=== PATIENT | male | born 1985 | race Caucasian/White ===

== ENCOUNTER 2017-10-06 09:05 | Emergency (ER) | payer OTHER ==
[~2017-10-06] VITALS: Ht 180.3 cm; Wt 86.2 kg
--- OUTSIDE RECORDS SUMMARY | 2017-10-06 09:12 | XMS REPORT | Continuity of Care Document ---
Author Author [facility] Address Unknown Phone Unavailable Allergies There is no data. Medications There is no data. Problems There is no data. Procedures There is no data. Results There is no data. Encounters ACCT No. Visit Date/Time Discharge Status Pt. Type Provider Facility Loc./Unit Complaint [id number] 05/15/2017 08:52:59 ACT Unknown
[2017-10-06] MEDS ORDERED: ACETAMINOPHEN 500 MG TAB (TYLENOL) PO ONE (09:45)
[2017-10-06 09:53] LABS: BASOPHILS % (AUTO) 1 % (0-10); EOSINOPHILS % (AUTO) 0 % (0-10); HEMATOCRIT 43 % (40-54); LYMPHOCYTES # (AUTO) 1.8 X 10^3 (1.0-4.0); LYMPHOCYTES % (AUTO) 27 % (12-44); MEAN CORPUSCULAR HEMOGLOBIN 35 PG (25-34); MEAN CORPUSCULAR HGB CONC 37 G/DL (32-36); MEAN CORPUSCULAR VOLUME 95 FL (80-99); MEAN PLATELET VOLUME 11.2 FL (7.4-10.4); MONOCYTES # (AUTO) 0.7 X 10^3 (0.0-1.0); MONOCYTES % (AUTO) 11 % (0-12); NEUTROPHILS % (AUTO) 61 % (42-75); PLATELET COUNT 91 10^3/uL (130-400); RED BLOOD COUNT 4.55 10^6/uL (4.35-5.85); RED CELL DISTRIBUTION WIDTH 13.5 % (10.0-14.5); WHITE BLOOD COUNT 6.6 10^3/uL (4.3-11.0)
--- NOTE | 2017-10-06 09:59 | ED Cough/URI ---
General Chief Complaint: Cough/Cold/Flu Symptoms Stated Complaint: BODY ACHES,FEVER Nursing Triage Note: ARRIVED VIA AMB TO ROOM 05. COMPLAINS OF FLU LIKE SX FOR 11 DAYS. STATES IT GOT BETTER BUT HAS BECAME WORSE AGIAN. STARTED AMOXICILLIN X4 DAYS AGO BUT NOT BETTER. RAN A TEMP THRU THE NOC AND TOOK APPX X6 IBUPROFEN THRU THE NOC. Source: patient Exam Limitations: no limitations History of Present Illness Date Seen by Provider: Oct 06, 2017 Time Seen by Provider: 09:55 Initial Comments This 32-year-old white male presents with a complaint of cough congestion and myalgias fever and general malaise as been intermittently present for the last 10 days. The patient denies associated headache, stiff neck, photophobia, shortness of breath, nausea, vomiting, or diarrhea. Allergies and Home Medications Allergies Coded Allergies: No Known Drug Allergies (Unverified , 10/06/17) Patient Home Medication List Home Medication List Reviewed: Yes Constitutional: No chills, fever, malaise EENTM: No ear pain Respiratory: see HPI, cough, No short of breath Cardiovascular: No chest pain Gastrointestinal: No abdominal pain, No nausea, No vomiting Genitourinary: No dysuria, No frequency Musculoskeletal: No back pain Skin: No change in color, No rash Psychiatric/Neurological: No Symptoms Reported Hematologic/Lymphatic: No Symptoms Reported Immunological/Allergic: no symptoms reported Past Yhuoryz-Dbmhbd-Qsokoo Hx Patient Social History Recent Foreign Travel: No Contact w/Someone Who Travel: No Recent Infectious Disease Expo: No Recent Hopitalizations: No Surgeries History of Surgeries: Yes (HERNIA) Respiratory History of Respiratory Disorde: No Cardiovascular History of Cardiac Disorders: No Neurological History of Neurological Disord: No Genitourinary History of Genitourinary Disor: No Gastrointestinal History of Gastrointestinal Di: No Musculoskeletal History of Musculoskeletal Dis: No Endocrine History of Endocrine Disorders: No HEENT History of HEENT Disorders: No Cancer History of Cancer: No Psychosocial History of Psychiatric Problem: No Reviewed Nursing Assessment Reviewed/Agree w Nursing PMH: Yes Physical Exam Vital Signs Vital Signs - First Documented 10/06/17 09:11 Temp 101.5 Pulse 113 B/P (MAP) 140/99 (113) Capillary Refill : Less Than 3 Seconds General Appearance: WD/WN, no apparent distress HEENT: normal ENT inspection Neck: non-tender, full range of motion, supple Respiratory: chest non-tender, lungs clear Cardiovascular: regular rate, rhythm Gastrointestinal: normal bowel sounds, non tender, soft Extremities: normal range of motion, non-tender, normal inspection Skin: normal color, warm/dry Focused Exam Evaluation Lactate Level Laboratory Tests 10/06/17 09:36: Lactic Acid Level 1.21 Lactic Acid Level Laboratory Tests Test 10/06/17 09:36 Lactic Acid Level 1.21 MMOL/L (0.50-2.00) Progress/Results/Core Measures Suspected Sepsis Recent Fever Within 48 Hours: Yes Infection Criteria Present: Suspected New Infection New/Unexplained Altered Menta: No Sepsis Screen: Possible Sepsis Risk Sepsis Diagnosis: SIRS Temperature:101.5 Pulse: 113 Respiratory Rate: Laboratory Tests 10/06/17 09:36: White Blood Count 6.6 Blood Pressure 140 /99 Mean: 113 Laboratory Tests 10/06/17 09:36: Lactic Acid Level 1.21 Laboratory Tests 10/06/17 09:36: Creatinine 0.79, INR Comment 1.1, Platelet Count 91L, Total Bilirubin 0.7 Results/Orders Lab Results Laboratory Tests Test 10/06/17 09:36 10/06/17 09:49 Range/Units White Blood Count 6.6 4.3-11.0 10^3/uL Red Blood Count 4.55 4.35-5.85 10^6/uL Hemoglobin 16.0 13.3-17.7 G/DL Hematocrit 43 40-54 % Mean Corpuscular Volume 95 80-99 FL Mean Corpuscular Hemoglobin 35 H 25-34 PG Mean Corpuscular Hemoglobin Concent 37 H 32-36 G/DL Red Cell Distribution Width 13.5 10.0-14.5 % Platelet Count 91 L 130-400 10^3/uL Mean Platelet Volume 11.2 H 7.4-10.4 FL Neutrophils (%) (Auto) 61 42-75 % Lymphocytes (%) (Auto) 27 12-44 % Monocytes (%) (Auto) 11 0-12 % Eosinophils (%) (Auto) 0 0-10 % Basophils (%) (Auto) 1 0-10 % Neutrophils # (Auto) 4.0 1.8-7.8 X 10^3 Lymphocytes # (Auto) 1.8 1.0-4.0 X 10^3 Monocytes # (Auto) 0.7 0.0-1.0 X 10^3 Eosinophils # (Auto) 0.0 0.0-0.3 10^3/uL Basophils # (Auto) 0.0 0.0-0.1 10^3/uL Prothrombin Time 14.7 12.2-14.7 SEC INR Comment 1.1 0.8-1.4 Activated Partial Thromboplast Time 33 24-35 SEC Sodium Level 128 L 135-145 MMOL/L Potassium Level 3.1 L 3.6-5.0 MMOL/L Chloride Level 90 L 98-107 MMOL/L Carbon Dioxide Level 25 21-32 MMOL/L Anion Gap 13 5-14 MMOL/L Blood Urea Nitrogen 4 L 7-18 MG/DL Creatinine 0.79 0.60-1.30 MG/DL Estimat Glomerular Filtration Rate > 60 BUN/Creatinine Ratio 5 Glucose Level 124 H 70-105 MG/DL Lactic Acid Level 1.21 0.50-2.00 MMOL/L Calcium Level 7.9 L 8.5-10.1 MG/DL Total Bilirubin 0.7 0.1-1.0 MG/DL Aspartate Amino Transf (AST/SGOT) 116 H 5-34 U/L Alanine Aminotransferase (ALT/SGPT) 64 H 0-55 U/L Alkaline Phosphatase 109 40-136 U/L Total Protein 6.9 6.4-8.2 GM/DL Albumin 3.6 3.2-4.5 GM/DL Urine Color LAMBERTO H Urine Clarity CLEAR Urine pH 8 5-9 Urine Specific [place] 1.010 L 1.016-1.022 Urine Protein 2+ H NEGATIVE Urine Glucose (UA) NEGATIVE NEGATIVE Urine Ketones NEGATIVE NEGATIVE Urine Nitrite NEGATIVE NEGATIVE Urine Bilirubin NEGATIVE NEGATIVE Urine Urobilinogen 4 H NORMAL MG/DL Urine Leukocyte Esterase 1+ H NEGATIVE Urine RBC (Auto) NEGATIVE NEGATIVE Urine RBC NONE /HPF Urine WBC RARE /HPF Urine Squamous Epithelial Cells NONE /HPF Urine Crystals NONE /LPF Urine Bacteria NEGATIVE /HPF Urine Casts NONE /LPF Urine Mucus NEGATIVE /LPF Urine Culture Indicated NO Micro Results Microbiology 10/06/17 Influenza Types A,B Antigen (VÍCTOR) - Final, Complete My Orders Orders - NAHEED DOYLE MD Cbc With Automated Diff (10/06/17 09:30) Comprehensive Metabolic Panel (10/06/17 09:30) Lactic Acid Analyzer (10/06/17 09:30) Blood Culture (10/06/17 09:30) Sputum Culture (10/06/17 09:30) Ua Culture If Indicated (10/06/17:30) Protime With Inr (10/06/17:30) Partial Thromboplastin Time (10/06/17 09:30) Chest 1 View, Ap/Pa Only (10/06/17 09:30) Saline Lock/Iv-Start (10/06/17 09:30) Saline Lock/Iv-Start (10/06/17 09:30) Vital Signs Adult Sepsis Patie Q1H (10/06/17 09:30) Remove Rings In Anticipation O (10/06/17:30) Saline Lock/Iv-Start (10/06/17 09:30) Acetaminophen Tablet (Tylenol Tablet) (10/06/17 09:45) Influenza A And B Antigens (10/06/17 09:52) Medications Given in ED Current Medications Medications Dose Ordered Sig/Ojse Route Start Time Stop Time Status Last Admin Dose Admin Acetaminophen 1,000 mg ONCE ONCE PO 10/06/17 09:45 10/06/17 09:46 DC 10/06/17 09:51 1,000 MG Vital Signs/I&O Vital Sign - Last 12Hours 10/06/17 10/06/17 09:11 11:12 Temp 101.5 100.0 Pulse 113 B/P (MAP) 140/99 (113) Capillary Refill : Less Than 3 Seconds Blood Pressure Mean: 113 Progress Note : Time: 11:28 Progress Note The patient's chest x-ray demonstrated a patchy right-sided infiltrate. The patient's laboratory evaluation was unremarkable. Departure Impression Impression: Primary Impression: Pneumonia Qualified Codes: J18.9 - Pneumonia, unspecified organism Disposition: HOME, SELF-CARE Condition: Unchanged Departure-Patient Inst. Decision time for Depature: 11:30 Referrals: [facility] (PCP/Family) Primary Care Physician Patient Instructions: Pneumonia, Adult (DC) Add. Discharge Instructions: Zithromax as prescribed. Close follow-up with [facility] on Monday. Return in the interim if any problems or questions. All discharge instructions reviewed with patient and/or family. Voiced understanding. NAHEED DOYLE MD Oct 06, 2017 09:58
[2017-10-06 10:02] LABS: INR 1.1 (0.8-1.4); PROTHROMBIN TIME PATIENT 14.7 SEC (12.2-14.7)
[2017-10-06 10:12] LABS: ALANINE AMINOTRANSFERASE 64 U/L (0-55); ALBUMIN 3.6 GM/DL (3.2-4.5); ALKALINE PHOSPHATASE 109 U/L (40-136); BILIRUBIN,TOTAL 0.7 MG/DL (0.1-1.0); BUN/CREATININE RATIO 5; CALCIUM 7.9 MG/DL (8.5-10.1); CARBON DIOXIDE 25 MMOL/L (21-32); CHLORIDE 90 MMOL/L (98-107); CREATININE SERUM 0.79 MG/DL (0.60-1.30); GFR ESTIMATED > 60; GLUCOSE 124 MG/DL (70-105); POTASSIUM 3.1 MMOL/L (3.6-5.0); SODIUM 128 MMOL/L (135-145); TOTAL PROTEIN 6.9 GM/DL (6.4-8.2)
[2017-10-06 10:16] LABS: BILIRUBIN,URINE NEGATIVE (NEGATIVE); CLARITY,URINE CLEAR; COLOR,URINE AMBER; GLUCOSE, URINE (UA) NEGATIVE (NEGATIVE); KETONES,URINE NEGATIVE (NEGATIVE); LEUKOCYTE ESTERASE ,URINE 1+ (NEGATIVE); NITRITE,URINE NEGATIVE (NEGATIVE); PH,URINE 8 (5-9); PROTEIN,URINE 2+ (NEGATIVE); UROBILINOGEN,URINE 4 MG/DL (NORMAL)
[2017-10-06 10:29] LABS: BACTERIA,URINE NEGATIVE /HPF; WBC,URINE RARE /HPF
--- NOTE | 2017-10-06 10:32 | Diagnostic Imaging Report ---
Indication: Flulike symptoms for 11 days with cough and shortness of air. Time of exam: 10:11 AM Comparison: No prior studies available for comparison. Findings: The heart size is normal. There is some mild perihilar parenchymal density. The remainder of the lung garrison are clear. No effusion is seen. There is no pneumothorax. Impression: Mild ill-defined perihilar density on the right. This could represent scarring/atelectasis however some minimal infiltrate cannot be excluded. No other abnormality is seen. Dictated by: Dictated on workstation # [id number]
[2017-10-06] MEDS ORDERED: cefTRIAXone INJECTION 1,000 MG in NS (IVPB) 100 ML IV ONE (11:30)
[2017-10-06 12:23] VITALS: BP 125/91
== END 2017-10-06 12:23 | disposition home or self-care (01) ==
LOC: ER 09:09
DX: J18.9 Pneumonia, unspecified organism (principal)
CPT/HCPCS: 36415; 71045; 80053; 81000; 83605; 85025; 85610; 85730; 87040; 87804; 96374

== ENCOUNTER 2017-10-17 10:57 | Observation (INO) | payer OTHER ==
[~2017-10-17] VITALS: Ht 180.3 cm; Wt 88.5 kg
--- NOTE | 2017-10-17 11:07 | ED Cough/URI ---
General Chief Complaint: Respiratory Problems Stated Complaint: DX W/PNEUMONIA X7 DAYS NOT GETTING BETTER Source: patient Exam Limitations: no limitations History of Present Illness Date Seen by Provider: Oct 17, 2017 Time Seen by Provider: 11:05 Initial Comments Patient was seen here in the emergency room 7-10 days ago diagnosed with pneumonia and placed on Zithromax. He states that his cough is nonproductive and persists. Fevers persistent up to 102-103. His is still on Amoxicillin prescribed by an outside facility. Timing/Duration: constant Severity/Quality: dry cough Associated Symptoms: cough, fever/chills Allergies and Home Medications Allergies Coded Allergies: No Known Drug Allergies (Unverified , 10/06/17) Patient Home Medication List Home Medication List Reviewed: Yes Constitutional: see HPI, fever, malaise EENTM: see HPI Respiratory: see HPI, cough Cardiovascular: no symptoms reported Genitourinary: no symptoms reported Musculoskeletal: no symptoms reported Psychiatric/Neurological: No Symptoms Reported Hematologic/Lymphatic: No Symptoms Reported Past Fvwmmvw-Xttxvc-Lhzpvn Hx Patient Social History Recent Foreign Travel: No Contact w/Someone Who Travel: No Recent Hopitalizations: No Surgeries History of Surgeries: Yes (HERNIA) Respiratory History of Respiratory Disorde: No Cardiovascular History of Cardiac Disorders: No Neurological History of Neurological Disord: No Genitourinary History of Genitourinary Disor: No Gastrointestinal History of Gastrointestinal Di: No Musculoskeletal History of Musculoskeletal Dis: No Endocrine History of Endocrine Disorders: No HEENT History of HEENT Disorders: No Cancer History of Cancer: No Psychosocial History of Psychiatric Problem: No Physical Exam Vital Signs Vital Signs - First Documented 10/17/17 11:03 Temp 101.0 Pulse 112 Resp 18 B/P (MAP) 123/75 (91) Pulse Ox 95 O2 Delivery Room Air Capillary Refill : General Appearance: WD/WN, no apparent distress Eyes: Bilateral Eye Normal Inspection, Bilateral Eye PERRL, Bilateral Eye EOMI HEENT: PERRL/EOMI, pharyngeal erythema Neck: non-tender, full range of motion Respiratory: normal breath sounds, no respiratory distress, no accessory muscle use Cardiovascular: regular rate, rhythm, no murmur Gastrointestinal: normal bowel sounds, non tender, soft Neurologic/Psychiatric: alert, normal mood/affect, oriented x 3 Skin: normal color, warm/dry Progress/Results/Core Measures Suspected Sepsis SIRS Temperature: Pulse: Respiratory Rate: Laboratory Tests 10/17/17 11:15: White Blood Count 10.5 Blood Pressure / Mean: Laboratory Tests 10/17/17 11:15: Creatinine 0.77, Platelet Count 115L, Total Bilirubin 1.3H Results/Orders Lab Results Laboratory Tests Test 10/17/17 11:15 Range/Units White Blood Count 10.5 4.3-11.0 10^3/uL Red Blood Count 4.32 L 4.35-5.85 10^6/uL Hemoglobin 15.1 13.3-17.7 G/DL Hematocrit 41 40-54 % Mean Corpuscular Volume 94 80-99 FL Mean Corpuscular Hemoglobin 35 H 25-34 PG Mean Corpuscular Hemoglobin Concent 37 H 32-36 G/DL Red Cell Distribution Width 14.1 10.0-14.5 % Platelet Count 115 L 130-400 10^3/uL Mean Platelet Volume 11.9 H 7.4-10.4 FL Neutrophils (%) (Auto) 36 L 42-75 % Lymphocytes (%) (Auto) 56 H 12-44 % Monocytes (%) (Auto) 6 0-12 % Eosinophils (%) (Auto) 0 0-10 % Basophils (%) (Auto) 2 0-10 % Neutrophils # (Auto) 3.8 1.8-7.8 X 10^3 Lymphocytes # (Auto) 5.9 H 1.0-4.0 X 10^3 Monocytes # (Auto) 0.6 0.0-1.0 X 10^3 Eosinophils # (Auto) 0.0 0.0-0.3 10^3/uL Basophils # (Auto) 0.2 H 0.0-0.1 10^3/uL Neutrophils % (Manual) 30 % Lymphocytes % (Manual) 30 % Monocytes % (Manual) 9 % Eosinophils % (Manual) 0 % Basophils % (Manual) 0 % Band Neutrophils 11 % Reactive Lymphocytes 20 % Sodium Level 125 *L 135-145 MMOL/L Potassium Level 2.5 *L 3.6-5.0 MMOL/L Chloride Level 84 L 98-107 MMOL/L Carbon Dioxide Level 30 21-32 MMOL/L Anion Gap 11 5-14 MMOL/L Blood Urea Nitrogen 5 L 7-18 MG/DL Creatinine 0.77 0.60-1.30 MG/DL Estimat Glomerular Filtration Rate > 60 BUN/Creatinine Ratio 6 Glucose Level 133 H 70-105 MG/DL Calcium Level 7.7 L 8.5-10.1 MG/DL Total Bilirubin 1.3 H 0.1-1.0 MG/DL Aspartate Amino Transf (AST/SGOT) 206 H 5-34 U/L Alanine Aminotransferase (ALT/SGPT) 111 H 0-55 U/L Alkaline Phosphatase 129 40-136 U/L Total Protein 6.6 6.4-8.2 GM/DL Albumin 3.0 L 3.2-4.5 GM/DL Monoscreen NEGATIVE NEGATIVE Micro Results Microbiology 10/17/17 Influenza Types A,B Antigen (VÍCTOR) - Final, Complete My Orders Orders - MEGAN HERNANDEZ APRN Cbc With Automated Diff (10/17/17 11:01) Chest Pa/Lat (2 View) (10/17/17 11:01) Monotest (10/17/17 11:05) Influenza A And B Antigens (10/17/17 11:05) Comprehensive Metabolic Panel (10/17/17 11:09) Ibuprofen Tablet (Motrin Tablet) (10/17/17 12:00) Ionized Calcium (10/17/17 11:55) Magnesium (10/17/17 12:00) Manual Differential (10/17/17 11:15) Potassium Chloride (Tablet) (K Dur Table (10/17/17 12:15) Medications Given in ED Current Medications Medications Dose Ordered Sig/Jose Route Start Time Stop Time Status Last Admin Dose Admin Ibuprofen 800 mg ONCE ONCE PO 10/17/17 12:00 10/17/17 12:01 DC 10/17/17 11:55 800 MG Vital Signs/I&O Vital Sign - Last 12Hours 10/17/17 11:03 Temp 101.0 Pulse 112 Resp 18 B/P (MAP) 123/75 (91) Pulse Ox 95 O2 Delivery Room Air Capillary Refill : Departure Communication (Admissions) Time/Spoke to Admitting Phy: 12:04 Communication I discussed the case with Dr. Cruz, we will admit the patient, repeat labs in the morning, replace potassium orally and 60 mEq 1 now. Family Conversation NAME: ISAMAR CONWAY [facility] REC#: [id number] PT STATUS: REG ER : 1985 PHYSICIAN: MEGAN HERNANDEZ APRN ADMIT DATE: 10/17/17/ER Draft Date of Exam:10/17/17 CHEST PA/LAT (2 VIEW) Clinical indication: Patient with fever and pneumonia diagnosed one week ago. Patient has trouble catching breath. Exam: Chest x-ray PA and lateral views. Comparisons: Chest x-ray dated 10/06/2017. Findings: Lungs/pleura: Again seen ill-defined airspace opacity appearance in the right perihilar region which is not significantly changed in the interim. Otherwise, lungs are clear. There is no pleural effusion or pneumothorax. Pulmonary vasculature and cardiac silhouettes within normal limits. Bones show no significant abnormality. Impression: Stable chest x-ray exam with ill-defined airspace opacity appearance in the right perihilar region which has not significantly changed in the interim. Comparison to older chest x-rays may help better evaluate. This appearance may be normal for patient and followup chest x-ray in 4 weeks is suggested to evaluate for stability or improved appearance. Dictated on workstation # [id number] Dict: 10/17/17 1205 Trans: 10/17/17 1214 BASILIO [id number] Interpreted by: GO CHEN MD Electronically signed by: Progress Notes I discussed the labs with the patient and his and the need for admission. They agree to be admitted. He states that he has been drinking a large amount of water which may contribute to his hypokalemia so I'll place him on a fluid restriction upstairs with IV fluid replacement. Discuss with them that this likely represented a viral illness which would be most consistent with Monocryl based on labs that he tested negative for that. Chest x-ray appears to me to show a right infrahilar opacity, slightly improved from prior and likely a component of his viral illlness despite failure to improve with amoxil+ zithromax. . Impression Impression: Primary Impression: Viral syndrome Additional Impressions: Elevated liver enzymes Hypokalemia Hyponatremia Disposition: HOME, SELF-CARE Condition: Stable Admissions Decision to Admit Reason: Admit from ER (General) Decision to Admit/Date: Oct 17, 2017 Time/Decision to Admit Time: 12:05 Departure-Patient Inst. Referrals: [facility] (PCP/Family) Primary Care Physician MEGAN HERNANDEZ APRN Oct 17, 2017 11:07
[2017-10-17 11:33] LABS: BASOPHILS # (AUTO) 0.2 10^3/uL (0.0-0.1); BASOPHILS % (AUTO) 2 % (0-10); EOSINOPHILS % (AUTO) 0 % (0-10); HEMATOCRIT 41 % (40-54); HEMOGLOBIN 15.1 G/DL (13.3-17.7); LYMPHOCYTES # (AUTO) 5.9 X 10^3 (1.0-4.0); LYMPHOCYTES % (AUTO) 56 % (12-44); MEAN CORPUSCULAR HEMOGLOBIN 35 PG (25-34); MEAN CORPUSCULAR HGB CONC 37 G/DL (32-36); MEAN CORPUSCULAR VOLUME 94 FL (80-99); MEAN PLATELET VOLUME 11.9 FL (7.4-10.4); MONOCYTES # (AUTO) 0.6 X 10^3 (0.0-1.0); MONOCYTES % (AUTO) 6 % (0-12); NEUTROPHILS # (AUTO) 3.8 X 10^3 (1.8-7.8); NEUTROPHILS % (AUTO) 36 % (42-75); PLATELET COUNT 115 10^3/uL (130-400); RED BLOOD COUNT 4.32 10^6/uL (4.35-5.85); RED CELL DISTRIBUTION WIDTH 14.1 % (10.0-14.5); WHITE BLOOD COUNT 10.5 10^3/uL (4.3-11.0)
[2017-10-17] MEDS ORDERED: AMOX500C2 PO (11:36)
[2017-10-17 11:51] LABS: ALANINE AMINOTRANSFERASE 111 U/L (0-55); ALKALINE PHOSPHATASE 129 U/L (40-136); BILIRUBIN,TOTAL 1.3 MG/DL (0.1-1.0); BUN/CREATININE RATIO 6; CALCIUM 7.7 MG/DL (8.5-10.1); CARBON DIOXIDE 30 MMOL/L (21-32); CHLORIDE 84 MMOL/L (98-107); CREATININE SERUM 0.77 MG/DL (0.60-1.30); GFR ESTIMATED > 60; GLUCOSE 133 MG/DL (70-105); TOTAL PROTEIN 6.6 GM/DL (6.4-8.2)
[2017-10-17 11:53] LABS: POTASSIUM 2.5 MMOL/L (3.6-5.0); SODIUM 125 MMOL/L (135-145)
[2017-10-17] MEDS ORDERED: IBUPROFEN 800 MG (MOTRIN) TAB PO ONE (12:00)
[2017-10-17 12:06] LABS: BAND NEUTROPHILS 11 %; BASOPHILS % (MANUAL) 0 %; EOSINOPHILS % (MANUAL) 0 %; LYMPHOCYTES % (MANUAL) 30 %; MONOCYTES % (MANUAL) 9 %; NEUTROPHILS % (MANUAL) 30 %; REACTIVE LYMPHOCYTES 20 %
--- NOTE | 2017-10-17 12:14 | Diagnostic Imaging Report ---
Clinical indication: Patient with fever and pneumonia diagnosed one week ago. Patient has trouble catching breath. Exam: Chest x-ray PA and lateral views. Comparisons: Chest x-ray dated 10/06/2017. Findings: Lungs/pleura: Again seen ill-defined airspace opacity appearance in the right perihilar region which is not significantly changed in the interim. Otherwise, lungs are clear. There is no pleural effusion or pneumothorax. Pulmonary vasculature and cardiac silhouettes within normal limits. Bones show no significant abnormality. Impression: Stable chest x-ray exam with ill-defined airspace opacity appearance in the right perihilar region which has not significantly changed in the interim. Comparison to older chest x-rays may help better evaluate. This appearance may be normal for patient and followup chest x-ray in 4 weeks is suggested to evaluate for stability or improved appearance. Dictated by: Dictated on workstation # [id number]
[2017-10-17] MEDS ORDERED: KCL 20 MEQ TAB (K-DUR) PO ONE (12:15)
[2017-10-17] MEDS ORDERED: KCL 10 MEQ TAB (MICRO K) PO ONE ×2 (12:35→12:45)
[2017-10-17] MEDS: MAGNESIUM 1 GM/100 ML IVPB 100 ML IV SCH ×4 (12:52→16:03)
--- OUTSIDE RECORDS SUMMARY | 2017-10-17 12:57 | XMS REPORT | Continuity of Care Document ---
Author Author [facility] Address Unknown Phone Unavailable Allergies There is no data. Medications There is no data. Problems There is no data. Procedures There is no data. Results There is no data. Encounters ACCT No. Visit Date/Time Discharge Status Pt. Type Provider Facility Loc./Unit Complaint [id number] 05/15/2017 08:52:59 ACT Unknown
--- OUTSIDE RECORDS SUMMARY | 2017-10-17 12:59 | XMS REPORT | Continuity of Care Document ---
Author Author [facility] Address Unknown Phone Unavailable Allergies There is no data. Medications There is no data. Problems There is no data. Procedures There is no data. Results There is no data. Encounters ACCT No. Visit Date/Time Discharge Status Pt. Type Provider Facility Loc./Unit Complaint [id number] 05/15/2017 08:52:59 ACT Unknown
[2017-10-17] MEDS ORDERED: PROMETHAZINE/ CODEINE SYRUP 5 ML UDC PO PRN (13:45)
[2017-10-17] MEDS ORDERED: IBUPROFEN 800 MG (MOTRIN) TAB PO PRN ×2 (13:45→23:45)
[2017-10-17] MEDS ORDERED: ACET-93 PO (14:00)
[2017-10-17] MEDS ORDERED: INFLUENZA TRIvalent 2017-2018 0.5 ML/45 MCG SYR IM ONE (14:15)
[2017-10-17 16:00] VITALS: BP 115/57
[2017-10-17] MEDS: NS IV 1000 ML 1,000 ML IV SCH (18:02)
[2017-10-17 19:58] VITALS: BP 127/70
[2017-10-17] MEDS ORDERED: ACETAMINOPHEN 500 MG TAB (TYLENOL) PO PRN (23:45)
[2017-10-18] VITALS: BP 132/62
[2017-10-18] MEDS: NS IV 1000 ML 1,000 ML IV SCH ×2 (00:40→07:39)
[2017-10-18 04:00] VITALS: BP 114/62
[2017-10-18 05:27] LABS: BASOPHILS # (AUTO) 0.1 10^3/uL (0.0-0.1); BASOPHILS % (AUTO) 2 % (0-10); EOSINOPHILS % (AUTO) 0 % (0-10); HEMATOCRIT 38 % (40-54); HEMOGLOBIN 13.6 G/DL (13.3-17.7); LYMPHOCYTES # (AUTO) 3.7 X 10^3 (1.0-4.0); LYMPHOCYTES % (AUTO) 53 % (12-44); MEAN CORPUSCULAR HEMOGLOBIN 35 PG (25-34); MEAN CORPUSCULAR HGB CONC 36 G/DL (32-36); MEAN CORPUSCULAR VOLUME 95 FL (80-99); MEAN PLATELET VOLUME 11.9 FL (7.4-10.4); MONOCYTES # (AUTO) 0.7 X 10^3 (0.0-1.0); MONOCYTES % (AUTO) 9 % (0-12); NEUTROPHILS # (AUTO) 2.5 X 10^3 (1.8-7.8); NEUTROPHILS % (AUTO) 35 % (42-75); PLATELET COUNT 110 10^3/uL (130-400); RED BLOOD COUNT 3.93 10^6/uL (4.35-5.85); RED CELL DISTRIBUTION WIDTH 14.4 % (10.0-14.5)
[2017-10-18 05:40] LABS: ALANINE AMINOTRANSFERASE 81 U/L (0-55); ALBUMIN 2.5 GM/DL (3.2-4.5); ALKALINE PHOSPHATASE 128 U/L (40-136); BILIRUBIN,TOTAL 0.8 MG/DL (0.1-1.0); BUN/CREATININE RATIO 8; CALCIUM 7.6 MG/DL (8.5-10.1); CARBON DIOXIDE 27 MMOL/L (21-32); CHLORIDE 97 MMOL/L (98-107); CREATININE SERUM 0.71 MG/DL (0.60-1.30); GFR ESTIMATED > 60; GLUCOSE 120 MG/DL (70-105); POTASSIUM 2.7 MMOL/L (3.6-5.0); SODIUM 133 MMOL/L (135-145); TOTAL PROTEIN 5.4 GM/DL (6.4-8.2)
[2017-10-18 08:00] VITALS: BP 136/63
--- NOTE | 2017-10-18 11:25 | Short Stay Summary-Hospitalist ---
History of Present Illness HPI/Chief Complaint CC: Severe dehydration with fever HPI: This is a 32-year-old white male whose only medical problem is smoking who had presented to count includes the [facility] walk-in clinic but not established patient who was admitted after completing 10 days of amoxicillin but fever continued and he started feeling worse. Patient was found to have severe electrolyte imbalance with severe hyponatremia likely due to an immense amount of water he has been attempting to drink without eating and findings consistent with dehydration. Chest x-ray obtained in ER appeared to be more of a viral origin and although he ran a 101.8 temperature last night he feels much better and is ready to go home. He has no wbc elevation. He has been going downstairs to smoke and he is eating and drinking well and his bowels are moving. He works at [employer] in [place] that in the midst of transferring to [employer]. He reports that he smokes and is trying to quit. He denies coughing. Source: patient Exam Limitations: no limitations Date Seen 10/18/17 Time Seen by Provider: 10:00 Attending Physician Sandra Cruz MD PCP Center/[facility] [place] [facility] Referring Physician Date of Admission Oct 17, 2017 at 12:01 Home Medications & Allergies Home Medications Reviewed patient Home Medication Reconciliation performed by pharmacy medication reconciliations all source intelligence technician and/or nursing. Patients Allergies have been reviewed. Allergies Allergies Coded Allergies No Known Drug Allergies (Unverified10/06/17) Past Wciyufq-Mzhqxz-Yxwadw Hx Past Med/Social Hx: Reviewed Nursing Past Med/Soc Hx, Reviewed and Corrections made Patient Social History Marrital Status: Employed/Student: employed ([employer]) Alcohol Use: Rarely Uses Number of Drinks Today: 0 Recreational Drug Use: No Smoking Status: Current Everyday Smoker Type Used: Cigarettes Physical Abuse Screen: No Sexual Abuse: No Recent Foreign Travel: No Contact w/other who traveled: No Recent Hopitalizations: No Recent Infectious Disease Expo: No Seasonal Allergies Seasonal Allergies: Yes Past Medical History HEENT: Tinnitis History of Blood Disorders: No Family History Patient reports no known family medical history. No Pertinent Family Hx Review of Systems Constitutional: see HPI, fever, weakness EENTM: no symptoms reported Respiratory: cough Cardiovascular: no symptoms reported Gastrointestinal: loss of appetite, nausea, vomiting Genitourinary: decreased output Musculoskeletal: no symptoms reported Skin: no symptoms reported Psychiatric/Neurological: No Symptoms Reported All Other Systems Reviewed Negative Unless Noted: Yes Physical Exam Physical Exam Vital Signs Vital Signs - First Documented 10/17/17 11:03 Temp 101.0 Pulse 112 Resp 18 B/P (MAP) 123/75 (91) Pulse Ox 95 O2 Delivery Room Air Capillary Refill : Less Than 3 Seconds General Appearance: No Apparent Distress, WD/WN Eyes: Bilateral Eye Normal Inspection, Bilateral Eye PERRL HEENT: PERRL/EOMI, Normal ENT Inspection, Pharynx Normal Neck: Full Range of Motion, Normal Inspection, Non Tender, Supple, Carotid Bruit Respiratory: Chest Non Tender, Lungs Clear, Normal Breath Sounds, No Accessory Muscle Use, No Respiratory Distress Cardiovascular: Regular Rate, Rhythm, No Edema, No Gallop, No JVD, No Murmur, Normal Peripheral Pulses Gastrointestinal: Normal Bowel Sounds, No Organomegaly, No Pulsatile Mass, Non Tender, Soft Back: Normal Inspection, No CVA Tenderness, No Vertebral Tenderness Extremity: Normal Capillary Refill, Normal Inspection, Normal Range of Motion, Non Tender, No Calf Tenderness, No Pedal Edema Neurologic/Psychiatric: Alert, Oriented x3, No Motor/Sensory Deficits, Normal Mood/Affect Skin: Normal Color, Warm/Dry Lymphatic: No Adenopathy Results Results/Procedures Labs Laboratory Tests 10/17/17 11:15 10/18/17 05:00 Patient resulted labs reviewed. Short Stay Diagnosis Discharge Diagnosis-Short Stay Admission Diagnosis Severe hyponatremia with hypokalemia with dehydration on clinical exam Fever of unknown source likely viral in origin on chest x-ray findings Smoker Mild elevation in LFT's Final Discharge Diagnosis Severe hyponatremia with hypokalemia with dehydration on clinical exam Fever of unknown source likely viral in origin on chest x-ray findings Smoker Mild elevation in LFT's Conclusion Plan Plan: Stop antibiotics Stop Tylenol Replace potassium oral route sent prescription to pharmacy Follow-up with me on Monday at 2 p.m. and will likely recheck BMP electrolyte panel Stop smoking Monitor fever only Diagnosis/Problems Diagnosis/Problems (1) Hyponatremia Status: Acute (2) Hypokalemia Status: Acute (3) Viral syndrome Status: Acute (4) Elevated liver enzymes Status: Acute (5) Smoker Status: Chronic Clinical Quality Measures DVT/VTE Risk/Contraindication: Risk Factor Score Per Nursin RFS Level Per Nursing on Admit: 1=Low/No VTE PPX LI GREGORIO DO Oct 18, 2017 11:25
[2017-10-18] MEDS ORDERED: POTA20TA15 PO (11:26)
[2017-10-18 12:00] VITALS: BP 136/63
== END 2017-10-18 12:05 | disposition home or self-care (01) ==
LOC: EDUNIT# 10:57 → ER 10:58 → 4TH 12:01
PROVIDERS: ADMIT Family Medicine; ATTEND Family Medicine
DX: E87.1 Hypo-osmolality and hyponatremia (principal); E87.6 Hypokalemia; E86.0 Dehydration; R50.9 Fever, unspecified; R74.0 Nonspecific elevation of levels of transaminase and lactic acid dehydrogenase [LDH]; F17.210 Nicotine dependence, cigarettes, uncomplicated
CPT/HCPCS: 36415; 71046; 80053; 82330; 83735; 85007; 85025; 85027; 86308; 87804; 96374

== ENCOUNTER → 2017-10-27 | Outpatient (CLI) | payer OTHER ==
[~2017-10-27] MED LIST: ACET-93 PO; AMOX500C2 PO; POTA20TA15 PO
[2017-10-27 16:34] LABS: BILIRUBIN,URINE NEGATIVE (NEGATIVE); CLARITY,URINE CLEAR; COLOR,URINE YELLOW; GLUCOSE, URINE (UA) NEGATIVE (NEGATIVE); KETONES,URINE NEGATIVE (NEGATIVE); LEUKOCYTE ESTERASE ,URINE 1+ (NEGATIVE); NITRITE,URINE NEGATIVE (NEGATIVE); PH,URINE 8 (5-9); PROTEIN,URINE NEGATIVE (NEGATIVE); UROBILINOGEN,URINE 8 MG/DL (NORMAL)
[2017-10-27] MEDS: IOHEXOL 350 MG/ML 100 ML (OMNIPAQUE 350) VIAL IV ONE (16:34)
[2017-10-27 16:35] LABS: BASOPHILS # (AUTO) 0.2 10^3/uL (0.0-0.1); BASOPHILS % (AUTO) 2 % (0-10); EOSINOPHILS % (AUTO) 0 % (0-10); HEMATOCRIT 41 % (40-54); HEMOGLOBIN 14.4 G/DL (13.3-17.7); LYMPHOCYTES # (AUTO) 7.6 X 10^3 (1.0-4.0); LYMPHOCYTES % (AUTO) 63 % (12-44); MEAN CORPUSCULAR HEMOGLOBIN 35 PG (25-34); MEAN CORPUSCULAR HGB CONC 35 G/DL (32-36); MEAN CORPUSCULAR VOLUME 99 FL (80-99); MEAN PLATELET VOLUME 10.6 FL (7.4-10.4); MONOCYTES # (AUTO) 1.1 X 10^3 (0.0-1.0); MONOCYTES % (AUTO) 9 % (0-12); NEUTROPHILS # (AUTO) 3.1 X 10^3 (1.8-7.8); NEUTROPHILS % (AUTO) 26 % (42-75); PLATELET COUNT 191 10^3/uL (130-400); RED BLOOD COUNT 4.14 10^6/uL (4.35-5.85); RED CELL DISTRIBUTION WIDTH 14.9 % (10.0-14.5)
[2017-10-27] MEDS: NS 250 ML (IVPB) BAG IV ONE (16:35)
[2017-10-27 16:43] LABS: WBC,URINE 0-2 /HPF
[2017-10-27 16:52] LABS: ALANINE AMINOTRANSFERASE 57 U/L (0-55); ALBUMIN 3.3 GM/DL (3.2-4.5); ALKALINE PHOSPHATASE 124 U/L (40-136); BUN/CREATININE RATIO 6; CALCIUM 8.5 MG/DL (8.5-10.1); CARBON DIOXIDE 27 MMOL/L (21-32); CHLORIDE 99 MMOL/L (98-107); GFR ESTIMATED > 60; GLUCOSE 98 MG/DL (70-105); POTASSIUM 3.7 MMOL/L (3.6-5.0); SODIUM 132 MMOL/L (135-145)
--- NOTE | 2017-10-27 16:59 | Diagnostic Imaging Report ---
PROCEDURE: CT chest, abdomen, and pelvis with contrast. TECHNIQUE: Multiple contiguous axial images were obtained through the chest, abdomen, and pelvis after the administration of intravenous contrast. INDICATION: Persistent fever despite antibiotic with pain. COMPARISON: I have no priors. FINDINGS: There is minimal subpleural atelectasis in the lung bases, greater left. No monica or focal pneumonia. No lung mass or thoracic adenopathy. No evidence for thoracic abscess. No empyema or pleural fluid. No pneumothorax. No acute soft tissue or osseous chest wall pathology. The aorta is nonaneurysmal. Heart and pericardium are unremarkable. Abdomen and pelvis: Air-containing appendix is normal. There is heterogeneous fatty infiltration of the liver and a tiny subcentimeter left lobe cyst. No liver mass or abscess. The gallbladder is contracted with no visualized stone. No bile duct dilatation. Spleen, adrenals, and pancreas are unremarkable. There is no hydronephrosis. The kidneys are unremarkable. There is no evidence for diverticulitis. There is no small or large bowel obstruction. There is no pneumatosis or free air. No ascites, abscess, hematoma, or other fluid collection. Aortoiliac and mesenteric vessels are patent and nonaneurysmal. The osseous structures are nonacute. IMPRESSION: 1. Chest: Mild basilar subpleural atelectasis or scarring. No findings of abscess, pneumonia, or empyema. 2. Abdomen and pelvis: Heterogeneous fatty liver. Normal appendix. No diverticulitis. No obstructive phenomenon, inflammatory process, or acute abnormalities identified. There was no evidence for abscess. Dictated by: Dictated on workstation # [id number]
[2017-10-27 17:00] LABS: ERYTHROCYTE SEDIMENTATION RATE 47 MM/HR (0-15)
== END ==
LOC: RAD 16:11
PROVIDERS: ATTEND Internal Medicine
DX: K76.0 Fatty (change of) liver, not elsewhere classified (principal)
CPT/HCPCS: 36415; 71260; 74177; 80053; 81000; 85025; 85652

== ENCOUNTER 2017-12-30 08:22 | Emergency (ER) | payer OTHER ==
[~2017-12-30] VITALS: Ht 182.9 cm; Wt 90.7 kg
--- NOTE | 2017-12-30 09:31 | ED Lower Extremity ---
General Chief Complaint: Lower Extremity Stated Complaint: RIGHT FOOT PAIN Nursing Triage Note: Pt was playing football with his kids and stepped in a hole. Claims he twisted his foot and felt a "pop". Lateral foot tenderness noted. Nursing Sepsis Screen: No Definite Risk Source: patient Exam Limitations: no limitations History of Present Illness Date Seen by Provider: December 30, 2017 Time Seen by Provider: 08:51 Initial Comments This 32-year-old gentleman presents to the emergency room with complaints of right lateral foot pain after stepping in a hole and rolling his foot in a inward inversion yesterday. He has been ambulatory. He has tenderness around the mid right fifth metatarsal region. He denies any other injuries. Allergies and Home Medications Allergies Coded Allergies: No Known Drug Allergies (Unverified , 10/06/17) Patient Home Medication List Home Medication List Reviewed: Yes Constitutional: no symptoms reported Musculoskeletal: see HPI Skin: no symptoms reported Psychiatric/Neurological: No Symptoms Reported Past Juqneyn-Vubxxb-Nlryyu Hx Patient Social History Alcohol Use: Denies Use Recreational Drug Use: No Smoking Status: Current Everyday Smoker Type Used: Cigarettes Recent Foreign Travel: No Contact w/Someone Who Travel: No Recent Infectious Disease Expo: No Recent Hopitalizations: No Seasonal Allergies Seasonal Allergies: Yes Past Medical History Surgeries: Yes (inguinal HERNIA repair) Respiratory: Yes (mycoplasma pneumonia at 12 yrs old) Pneumonia Cardiac: No Neurological: No Genitourinary: No Gastrointestinal: No Musculoskeletal: No Endocrine: No HEENT: Yes Tinnitis Cancer: No Did You Recieve Any Treatments: No Psychosocial: No Integumentary: No Blood Disorders: No Family Medical History Patient reports no known family medical history. No Pertinent Family Hx Physical Exam Vital Signs Vital Signs - First Documented 12/30/17 08:32 Temp 98.4 Pulse 72 Resp 16 B/P (MAP) 138/88 (105) Pulse Ox 98 O2 Delivery Room Air Capillary Refill : Less Than 3 Seconds General Appearance: WD/WN, no apparent distress HEENT: normal ENT inspection Neck: normal inspection Respiratory: normal breath sounds, no respiratory distress Legs: right leg non-tender, right leg normal inspection, right leg normal range of motion, right leg no evidence of injury Knees: right knee non-tender, right knee normal inspection, right knee normal range of motion, right knee no evidence of injury Ankles: right ankle non-tender, right ankle normal inspection, right ankle normal range of motion, right ankle no evidence of injury Feet: right foot bone tenderness (over the lateral edge of the fifth metatarsal ), right foot limited range of motion (decreased range of motion of the toes) Progress/Results/Core Measures Results/Orders My Orders Orders - SANTI ALCARAZ MD Foot, Right, 3 View (12/30/17 08:55) Crutches (12/30/17 09:56) Vital Signs/I&O 12/30/17 08:32 Temp 98.4 Pulse 72 Resp 16 B/P (MAP) 138/88 (105) Pulse Ox 98 O2 Delivery Room Air Blood Pressure Mean: 105 Progress Progress Note : Progress Note The x-ray was reviewed. There is no evidence of fracture in the metatarsal bones. There is a questionable fracture of the sesamoid bone of the first metatarsal. However, patient does not have significant tenderness in that area. This may have been old injury from a prior fall he had off of playground equipment. We discussed obtaining further imaging if this area becomes more of a problem for him. Crutches were dispensed to help him with ambulation due to his pain. Diagnostic Imaging Diagonstic Imaging: Xray Plain Films/CT/US/NM/MRI: other (right foot) Comments Right foot x-ray viewed by me and report reviewed. See report below: NAME: ISAMAR CONWAY [facility] REC#: [id number] PT STATUS: REG ER : 1985 PHYSICIAN: SANTI ALCARAZ MD ADMIT DATE: 12/30/17/ER Draft Date of Exam:12/30/17 FOOT, RIGHT, 3 VIEW INDICATION: Injury, foot pain EXAM: Right foot at 9:04 a.m. Three views were obtained. COMPARISON: There are no prior studies available for comparison. FINDINGS: There is no definite fracture, dislocation or acute bony abnormality evident. There is a linear lucency extending through the lateral sesamoid bone adjacent to the head of the first metatarsal. This finding is questionable for a fracture. If there is clinical concern regarding an injury to the sesamoid bone, then a nuclear medicine bone scan or MRI should be considered for further study. The soft tissues are unremarkable. IMPRESSION: There is no clear evidence for a fracture. However, there is a question of a fracture of lateral sesamoid bone. Recommendations as above. Dictated on workstation # [id number] Dict: 12/30/17908 Trans: 12/30/17936 [facility] [id number] Interpreted by: MARY ALICE ALEXANDER MD Departure Impression Primary Impression: Sprain and strain of foot Additional Impression: Contusion of foot Qualified Codes: S90.31XA - Contusion of right foot, initial encounter Disposition: HOME, SELF-CARE Condition: Improved Departure-Patient Inst. Decision time for Depature: 09:54 Referrals: LI GREGORIO DO (PCP/Family) Primary Care Physician Patient Instructions: Contusion (DC) Add. Discharge Instructions: You may treat pain with ibuprofen up to 600 mg every 6 hours as needed. Add Tylenol (acetaminophen) up to 1000 mg every 6 hours as needed for additional pain relief. Rest, elevation, and 20 minute intervals of icing should also be helpful in reducing pain and swelling. Use the crutches as needed. Gradually increase activity and weightbearing as pain allows. Return to care if symptoms are worsening or if you're not improving as expected over the next couple of days. If you have worsening symptoms at the base of your big toe, please seek follow- up care as further imaging may be necessary to evaluate further. All discharge instructions reviewed with patient and/or family. Voiced understanding. Copy Copies To 1: LI GREGORIO JOSHUA T MD December 30, 2017 09:31
--- NOTE | 2017-12-30 09:37 | Diagnostic Imaging Report ---
INDICATION: Injury, foot pain EXAM: Right foot at 9:04 a.m. Three views were obtained. COMPARISON: There are no prior studies available for comparison. FINDINGS: There is no definite fracture, dislocation or acute bony abnormality evident. There is a linear lucency extending through the lateral sesamoid bone adjacent to the head of the first metatarsal. This finding is questionable for a fracture. If there is clinical concern regarding an injury to the sesamoid bone, then either a nuclear medicine bone scan or MRI should be considered for further study. The soft tissues are unremarkable. IMPRESSION: There is no clear evidence for a fracture. However, there is a question of a fracture of lateral sesamoid bone of the first ray. Recommendations as above. Dictated by: Dictated on workstation # [id number]
[2017-12-30 10:00] VITALS: BP 138/88
== END 2017-12-30 10:00 | disposition home or self-care (01) ==
LOC: EDUNIT# 08:22 → ER 08:24
DX: S93.601A Unspecified sprain of right foot, initial encounter (principal); Z87.01 Personal history of pneumonia (recurrent); Z86.19 Personal history of other infectious and parasitic diseases; W17.2XXA Fall into hole, initial encounter; X50.1XXA Overexertion from prolonged static or awkward postures, initial encounter
CPT/HCPCS: 73630

== ENCOUNTER 2018-08-09 06:23 | Emergency (ER) | payer OTHER | END 2018-08-09 07:04 | disposition home or self-care (01) | LOC: ER 06:23 ==

== ENCOUNTER 2020-02-14 18:25 | Emergency (ER) | payer BC, OTHER ==
[~2020-02-14] VITALS: Ht 180.3 cm; Wt 86.1 kg
--- NOTE | 2020-02-14 18:39 | ED Neurological Problem ---
General Chief Complaint: Neurological Problems Stated Complaint: SEIZURE Source: patient, EMS Exam Limitations: no limitations History of Present Illness Date Seen by Provider: Feb 14, 2020 Time Seen by Provider: 18:36 Initial Comments To ER with c/o seizure activity at work. Hes employed at [employer] and collapsed at work hitting his head on a shelf on the way down. Upon EMS arrival he was noted to be confused and somnolent consistent with being post ictal. He has no seizure history. He recently started a new medication for PTSD. He also states that he drank alcohol daily about 2-3 beers but stopped that one week ago. No fevers chills or other illness. He states that he felt well upon awakening this morning and when going to work. He did have all earlier at work today. REPORT FROM : She reports that he did start a new medication for his PTSD. She reports that he has a functioning alcoholic and drinks beer and bourbon daily, most recently had some yesterday. She states that his liver is "messed up" because of it. [facility] Timing/Duration: 1/2 hour Severity: moderate Associated Symptoms: seizures Allergies and Home Medications Allergies Coded Allergies: No Known Drug Allergies (Unverified , 10/06/17) Patient Home Medication List Home Medication List Reviewed: Yes Review of Systems Review of Systems Constitutional: see HPI; No chills, No fever Eyes: No Symptoms Reported Ears, Nose, Mouth, Throat: no symptoms reported Respiratory: no symptoms reported Cardiovascular: no symptoms reported Genitourinary: no symptoms reported Musculoskeletal: no symptoms reported Skin: no symptoms reported Psychiatric/Neurological: See HPI Endocrine: No Symptoms Reported Hematologic/Lymphatic: No Symptoms Reported Past Gvnfahi-Llljwg-Kcmqye Hx Patient Social History Alcohol Use: Occasionally Uses Number of Drinks Today: DD Alcohol Beverage of Choice: Rum Recreational Drug Use: No Smoking Status: Current Everyday Smoker Type Used: Cigarettes 2nd Hand Smoke Exposure: Yes Recent Hopitalizations: No Seasonal Allergies Seasonal Allergies: Yes Past Medical History Surgeries: Yes (inguinal HERNIA repair) Abdominal Respiratory: Yes (mycoplasma pneumonia at 12 yrs old) Pneumonia Cardiac: No Neurological: No Genitourinary: No Gastrointestinal: No Musculoskeletal: No Endocrine: No HEENT: No Tinnitis Cancer: No Did You Recieve Any Treatments: No Psychosocial: No Integumentary: No Blood Disorders: No Family Medical History Patient reports no known family medical history. No Pertinent Family Hx Physical Exam Vital Signs Vital Signs - First Documented 02/14/20 18:33 Temp 37.1 Pulse 108 Resp 26 Pulse Ox 94 O2 Delivery Room Air Capillary Refill : Height, Weight, BMI Height: 6'0" Weight: 200lbs. 0.0oz. 90.132201eg; 27.2 BMI Method:Stated General Appearance: WD/WN, no apparent distress Neck: non-tender, full range of motion Respiratory: normal breath sounds, no respiratory distress, no accessory muscle use Cardiovascular: regular rate, rhythm, no murmur Gastrointestinal: normal bowel sounds, non tender, soft Extremities: normal range of motion, non-tender Neurologic/Psychiatric: alert, normal mood/affect, oriented x 3 Crainal Nerves: normal hearing, normal speech, PERRL Skin: normal color, warm/dry Progress/Results/Core Measures Results/Orders Lab Results Laboratory Tests Test 02/14/20 18:25 02/14/20 19:28 Range/Units White Blood Count 8.2 4.3-11.0 10^3/uL Red Blood Count 4.32 L 4.35-5.85 10^6/uL Hemoglobin 16.4 13.3-17.7 G/DL Hematocrit 43 40-54 % Mean Corpuscular Volume 101 H 80-99 FL Mean Corpuscular Hemoglobin 38 H 25-34 PG Mean Corpuscular Hemoglobin Concent 38 H 32-36 G/DL Red Cell Distribution Width 13.5 10.0-14.5 % Platelet Count 85 L 130-400 10^3/uL Mean Platelet Volume 11.0 H 7.4-10.4 FL Neutrophils (%) (Auto) 60 42-75 % Lymphocytes (%) (Auto) 26 12-44 % Monocytes (%) (Auto) 14 H 0-12 % Eosinophils (%) (Auto) 0 0-10 % Basophils (%) (Auto) 0 0-10 % Neutrophils # (Auto) 4.9 1.8-7.8 X 10^3 Lymphocytes # (Auto) 2.1 1.0-4.0 X 10^3 Monocytes # (Auto) 1.2 H 0.0-1.0 X 10^3 Eosinophils # (Auto) 0.0 0.0-0.3 10^3/uL Basophils # (Auto) 0.0 0.0-0.1 10^3/uL Prothrombin Time 15.7 H 12.2-14.7 SEC INR Comment 1.2 0.8-1.4 Sodium Level 136 135-145 MMOL/L Potassium Level 3.3 L 3.6-5.0 MMOL/L Chloride Level 96 L 98-107 MMOL/L Carbon Dioxide Level 17 L 21-32 MMOL/L Anion Gap 23 H 5-14 MMOL/L Blood Urea Nitrogen 5 L 7-18 MG/DL Creatinine 0.80 0.60-1.30 MG/DL Estimat Glomerular Filtration Rate > 60 BUN/Creatinine Ratio 6 Glucose Level 142 H 70-105 MG/DL Calcium Level 9.2 8.5-10.1 MG/DL Corrected Calcium 9.1 8.5-10.1 MG/DL Total Bilirubin 2.0 H 0.1-1.0 MG/DL Aspartate Amino Transf (AST/SGOT) 192 H 5-34 U/L Alanine Aminotransferase (ALT/SGPT) 65 H 0-55 U/L Alkaline Phosphatase 89 40-136 U/L Total Protein 7.3 6.4-8.2 GM/DL Albumin 4.1 3.2-4.5 GM/DL Serum Alcohol < 10 <10 MG/DL Urine Color YELLOW Urine Clarity CLEAR Urine pH 6.0 5-9 Urine Specific [place] >=1.030 1.016-1.022 Urine Protein 2+ H NEGATIVE Urine Glucose (UA) NEGATIVE NEGATIVE Urine Ketones 1+ H NEGATIVE Urine Nitrite NEGATIVE NEGATIVE Urine Bilirubin NEGATIVE NEGATIVE Urine Urobilinogen 2.0 < = 1.0 MG/DL Urine Leukocyte Esterase NEGATIVE NEGATIVE Urine RBC (Auto) TRACE-I NEGATIVE Urine RBC 5-10 H /HPF Urine WBC 0-2 /HPF Urine Squamous Epithelial Cells 0-2 /HPF Urine Renal Epithelial Cells 0-2 /HPF Urine Crystals NONE /LPF Urine Bacteria TRACE /HPF Urine Casts NONE /LPF Urine Mucus MODERATE H /LPF Urine Culture Indicated YES Urine Opiates Screen NEGATIVE NEGATIVE Urine Oxycodone Screen NEGATIVE NEGATIVE Urine Methadone Screen NEGATIVE NEGATIVE Urine Propoxyphene Screen NEGATIVE NEGATIVE Urine Barbiturates Screen NEGATIVE NEGATIVE Ur Tricyclic Antidepressants Screen NEGATIVE NEGATIVE Urine Phencyclidine Screen NEGATIVE NEGATIVE Urine Amphetamines Screen NEGATIVE NEGATIVE Urine Methamphetamines Screen NEGATIVE NEGATIVE Urine Benzodiazepines Screen NEGATIVE NEGATIVE Urine Cocaine Screen NEGATIVE NEGATIVE Urine Cannabinoids Screen NEGATIVE NEGATIVE My Orders Orders - MEGAN HERNANDEZ APRN Ct Head Wo (02/14/20 18:29) Alcohol (02/14/20 18:29) Protime With Inr (02/14/20 18:29) Comprehensive Metabolic Panel (02/14/20 18:29) Cbc With Automated Diff (02/14/20 18:29) Ua Culture If Indicated (02/14/20 18:50) Drug Screen Stat (Urine) (02/14/20 18:50) Ekg Tracing (02/14/20 18:53) Lorazepam Injection (Ativan Injection) (02/14/20 19:15) Urine Culture (02/14/20 19:28) Vital Signs/I&O 02/14/20 18:33 Temp 37.1 Pulse 108 Resp 26 B/P (MAP) Pulse Ox 94 O2 Delivery Room Air Departure Communication (Admissions) 2034-spoke with the patient's , we will discharge to home. He's been without symptoms here no recurrent seizures. His alcohol is less than 10 but he is normotensive and with a heart rate of only 80-100. We'll discharge to home, r eturn precautions. Impression Primary Impression: Seizure-like activity Disposition: HOME, SELF-CARE Condition: Stable Departure-Patient Inst. Decision time for Depature: 20:36 Referrals: LI GREGORIO DO (PCP/Family) Primary Care Physician Patient Instructions: Seizures Add. Discharge Instructions: It is possible that this represents seizure activity. However this could also represent a syncopal or passing out episode which is oftentimes followed by twitching and jerking briefly. Either way, no driving until released by your primary care doctor. Call Monday to make an appointment to be seen. If you have any recurrent symptoms over the weekend please return to the emergency room. All discharge instructions reviewed with patient and/or family. Voiced understanding. MEGAN HERNANDEZ APRN Feb 14, 2020 18:39
--- NOTE | 2020-02-14 18:43 | NUR ---
Spoke to pt's . reports pt is a "functioning alcoholic" and drinks beer and bourbon every day. Pt reports pt began a new medication for PTSD last week, but is not sure what the medication is.
[2020-02-14 18:58] LABS: ALBUMIN 4.1 GM/DL (3.2-4.5); BASOPHILS % (AUTO) 0 % (0-10); CHLORIDE 96 MMOL/L (98-107); EOSINOPHILS % (AUTO) 0 % (0-10); HEMATOCRIT 43 % (40-54); HEMOGLOBIN 16.4 G/DL (13.3-17.7); LYMPHOCYTES # (AUTO) 2.1 X 10^3 (1.0-4.0); LYMPHOCYTES % (AUTO) 26 % (12-44); MEAN CORPUSCULAR HEMOGLOBIN 38 PG (25-34); MEAN CORPUSCULAR HGB CONC 38 G/DL (32-36); MEAN CORPUSCULAR VOLUME 101 FL (80-99); MONOCYTES # (AUTO) 1.2 X 10^3 (0.0-1.0); MONOCYTES % (AUTO) 14 % (0-12); NEUTROPHILS # (AUTO) 4.9 X 10^3 (1.8-7.8); NEUTROPHILS % (AUTO) 60 % (42-75); PLATELET COUNT 85 10^3/uL (130-400); POTASSIUM 3.3 MMOL/L (3.6-5.0); RED CELL DISTRIBUTION WIDTH 13.5 % (10.0-14.5); SODIUM 136 MMOL/L (135-145); WHITE BLOOD COUNT 8.2 10^3/uL (4.3-11.0)
[2020-02-14 18:59] LABS: CALCIUM 9.2 MG/DL (8.5-10.1)
[2020-02-14 19:00] LABS: GLUCOSE 142 MG/DL (70-105); TOTAL PROTEIN 7.3 GM/DL (6.4-8.2)
[2020-02-14 19:01] LABS: CARBON DIOXIDE 17 MMOL/L (21-32)
[2020-02-14 19:02] LABS: INR 1.2 (0.8-1.4); PROTHROMBIN TIME PATIENT 15.7 SEC (12.2-14.7)
[2020-02-14 19:04] LABS: ALKALINE PHOSPHATASE 89 U/L (40-136); GFR ESTIMATED > 60
[2020-02-14 19:05] LABS: BUN/CREATININE RATIO 6
[2020-02-14 19:07] LABS: ALANINE AMINOTRANSFERASE 65 U/L (0-55)
[2020-02-14] MEDS ORDERED: LORazepam INJ 2 MG/ML (ATIVAN) VIAL IVP PRN (19:15)
--- NOTE | 2020-02-14 19:32 | Diagnostic Imaging Report ---
PROCEDURE: CT head without contrast. TECHNIQUE: Multiple contiguous axial images were obtained through the brain without the use of intravenous contrast. Auto Exposure Controls were utilized during the CT exam to meet ALARA standards for radiation dose reduction. INDICATION: Seizure. COMPARISON: No prior examination is are available for comparison. FINDINGS: The ventricles and sulci are within normal limits. There is no hydrocephalus or cerebral edema. There is no midline shift or mass effect. There is no intracranial mass, hemorrhage or extra-axial fluid collection. The visualized paranasal sinuses and mastoid air cells are clear. There are no regional areas of decreased attenuation appreciated to suggest an acute CVA. IMPRESSION: No acute intracranial abnormality. Dictated by: Dictated on workstation # [id number]
[2020-02-14 19:34] LABS: BILIRUBIN,URINE NEGATIVE (NEGATIVE); CLARITY,URINE CLEAR; COLOR,URINE YELLOW; GLUCOSE, URINE (UA) NEGATIVE (NEGATIVE); KETONES,URINE 1+ (NEGATIVE); LEUKOCYTE ESTERASE ,URINE NEGATIVE (NEGATIVE); NITRITE,URINE NEGATIVE (NEGATIVE); PROTEIN,URINE 2+ (NEGATIVE)
[2020-02-14 19:42] LABS: BACTERIA,URINE TRACE /HPF; RENAL EPITHELIAL CELLS,URINE 0-2 /HPF; SQUAMOUS EPITHELIAL CELL,UR 0-2 /HPF; WBC,URINE 0-2 /HPF
[2020-02-14 19:49] LABS: AMPHETAMINE SCREEN, URINE NEGATIVE (NEGATIVE); BARBITURATE SCREEN URINE NEGATIVE (NEGATIVE); BENZODIAZEPINES SCREEN URINE NEGATIVE (NEGATIVE); CANNABINOID SCREEN, URINE NEGATIVE (NEGATIVE); COCAINE SCREEN URINE NEGATIVE (NEGATIVE); METHADONE STAT NEGATIVE (NEGATIVE); METHAMPHETAMINE SCREEN URINE S NEGATIVE (NEGATIVE); OPIATE SCREEN URINE NEGATIVE (NEGATIVE); OXYCODONE STAT NEGATIVE (NEGATIVE); PROPOXYPHENE STAT NEGATIVE (NEGATIVE); TRICYCLIC ANTIDEPRESSANTS SCRE NEGATIVE (NEGATIVE)
--- NOTE | 2020-02-14 20:36 | NUR ---
Anselmo Bruce spoke with pt's regarding dc instructions.
[2020-02-14 20:45] VITALS: BP 131/75
== END 2020-02-14 20:48 | disposition home or self-care (01) ==
LOC: EDUNIT# 18:25 → ER 18:27
DX: R29.818 Other symptoms and signs involving the nervous system (principal); F43.10 Post-traumatic stress disorder, unspecified; F17.210 Nicotine dependence, cigarettes, uncomplicated
CPT/HCPCS: 70450; 80053; 80306; 81000; 85025; 85610; 87088; 99283; G0480; 36415; 80320; 93005

== ENCOUNTER 2020-02-14 22:01 | Inpatient (IN) | payer BC, OTHER ==
[~2020-02-14] VITALS: Ht 180.3 cm; Wt 85.5 kg
--- NOTE | 2020-02-14 22:09 | ED Neurological Problem ---
General Stated Complaint: SEIZURE Source: patient, EMS Exam Limitations: no limitations History of Present Illness Date Seen by Provider: Feb 14, 2020 Time Seen by Provider: 22:04 Initial Comments Patient was just discharged from here a few moments ago for seizure disorder. This was his first seizure, workup was unremarkable including CBC CMP urinalysis alcohol and CT head. He was given 1 mg of lorazepam and discharged home. Immediately upon arriving home he had a 3 minute long seizure, EMS arrived and patient was transported back to the hospital. Patient reported initially that he drinks 2-3 beers per day but quit about a week ago. He now reports he drinks 4- 6/beers a day and quit on Monday because hes been to busy. reports he is a daily drinker. His alcohol level was less than 10. Liver he was not tachycardic or hypotensive so alcohol withdrawal was not suspected. However he was recently started on propranolol to help control his PTSD so this may be masking the tachycardia and hypotension associated with alcohol withdrawal. Timing/Duration: 4-6 hours Severity: moderate Allergies and Home Medications Allergies Coded Allergies: No Known Drug Allergies (Unverified , 10/06/17) Patient Home Medication List Home Medication List Reviewed: Yes Review of Systems Review of Systems Constitutional: see HPI Eyes: No Symptoms Reported Ears, Nose, Mouth, Throat: no symptoms reported Respiratory: no symptoms reported Cardiovascular: no symptoms reported Genitourinary: no symptoms reported Musculoskeletal: no symptoms reported Skin: no symptoms reported Psychiatric/Neurological: No Symptoms Reported Endocrine: No Symptoms Reported Past Xswfwop-Wedyjb-Saexgz Hx Patient Social History Alcohol Beverage of Choice: Rum Type Used: Cigarettes 2nd Hand Smoke Exposure: Yes Recent Hopitalizations: No Seasonal Allergies Seasonal Allergies: Yes Past Medical History Surgeries: Yes (inguinal HERNIA repair) Abdominal Respiratory: Yes (mycoplasma pneumonia at 12 yrs old) Pneumonia Cardiac: No Neurological: No Genitourinary: No Gastrointestinal: No Musculoskeletal: No Endocrine: No HEENT: No Tinnitis Cancer: No Did You Recieve Any Treatments: No Psychosocial: No Integumentary: No Blood Disorders: No Family Medical History No Pertinent Family Hx Physical Exam Vital Signs Capillary Refill : Height, Weight, BMI Height: 6'0" Weight: 200lbs. 0.0oz. 90.815949js; 26.00 BMI Method:Stated General Appearance: WD/WN, no apparent distress, other (really alert and oriented, slight tremor, EMS reports he did appear postictal on scene. He did bite his tongue.) HEENT: PERRL/EOMI, other (small ecchymosis left side of tongue. ) Neck: non-tender, full range of motion Respiratory: no respiratory distress, no accessory muscle use Cardiovascular: regular rate, rhythm, no murmur Gastrointestinal: normal bowel sounds, non tender, soft Extremities: normal range of motion, non-tender Neurologic/Psychiatric: alert, normal mood/affect, oriented x 3 Crainal Nerves: normal hearing, normal speech, PERRL Motor/Sensory: no motor deficit Skin: normal color, warm/dry Progress/Results/Core Measures Results/Orders My Orders Orders - MEGAN HERNANDEZ APRN Lorazepam Injection (Ativan Injection) (02/14/20 22:15) Departure Impression Primary Impression: Alcohol withdrawal seizure Qualified Codes: F10.239 - Alcohol dependence with withdrawal, unspecified; R56.9 - Unspecified convulsions Disposition: ADMITTED INPATIENT Condition: Stable Admissions Decision to Admit Reason: Admit from ER (General) Decision to Admit/Date: Feb 14, 2020 Time/Decision to Admit Time: 22:07 Departure-Patient Inst. Referrals: LI GREGORIO DO (PCP/Family) Primary Care Physician MEGAN HERNANDEZ APRN Feb 14, 2020 22:09
[2020-02-14] MEDS ORDERED: LORazepam INJ 2 MG/ML (ATIVAN) VIAL IVP ONE (22:15)
[2020-02-14] MEDS ORDERED: LACTATED RINGERS 1,000 ML IV ONE (23:04)
[2020-02-14 23:10] VITALS: BP 123/70
[2020-02-14 23:15] VITALS: BP 104/74
[2020-02-14 23:30] VITALS: BP 117/77
[2020-02-14 23:45] VITALS: BP 119/82
[2020-02-14] MEDS ORDERED: 1/2 NS IV SOLUTION 1,000 ML IV PRN (23:50)
[2020-02-15] VITALS (9 sets, daily range): BP systolic 100–129; BP diastolic 56–78
[2020-02-15] MEDS ORDERED: D5 1/2 NS 1000 ML IV SOLUTION 1,000 ML IV PRN
[2020-02-15] MEDS ORDERED: LORazepam INJ 2 MG/ML (ATIVAN) VIAL IM/IV PRN
[2020-02-15] MEDS ORDERED: ANTACID SUSP 30 ML UDC (MYLANTA) PO PRN
[2020-02-15] MEDS ORDERED: LORazepam INJ 2 MG/ML (ATIVAN) VIAL IV PRN
[2020-02-15] MEDS ORDERED: LORazepam 1 MG (ATIVAN) TAB PO PRN
[2020-02-15] MEDS ORDERED: ONDANSETRON 4 MG/2 ML (SDV) Z0FRAN IV PRN
[2020-02-15] MEDS ORDERED: ONDANSETRON 4 MG (ZOFRAN) ORAL DISSOLVE TAB SL PRN
[2020-02-15] MEDS ORDERED: SENNA W/DOCUSATE (SENOKOT S) TABLET PO PRN
[2020-02-15] MEDS: LORazepam INJ 2 MG/ML (ATIVAN) VIAL IV SCH ×4 (00:30→18:16)
[2020-02-15] MEDS: LACTATED RINGERS 1,000 ML IV SCH ×3 (00:32→14:42)
--- NOTE | 2020-02-15 02:00 | NUR ---
Report and care given to Judie at bedside, pt transferred to room 414
--- NOTE | 2020-02-15 02:10 | NUR ---
PT ARRIVED ON FLOOR VIA CART ACCOMPANIED BY THIS RN AND ALONSO RN, PERSONAL BELONGINGS WITH PT. PT HAS NO COMPLAINTS. PHYSICAL ASSESSMENT AND CIWA DONE AT THIS TIME. CALL LIGHT WITHIN REACH. SEIZURE PRECAUTIONS IN PLACE.
[2020-02-15 05:27] LABS: BASOPHILS % (AUTO) 0 % (0-10); EOSINOPHILS % (AUTO) 0 % (0-10); HEMATOCRIT 44 % (40-54); HEMOGLOBIN 15.6 G/DL (13.3-17.7); LYMPHOCYTES # (AUTO) 1.8 X 10^3 (1.0-4.0); LYMPHOCYTES % (AUTO) 26 % (12-44); MEAN CORPUSCULAR HEMOGLOBIN 36 PG (25-34); MEAN CORPUSCULAR HGB CONC 36 G/DL (32-36); MEAN CORPUSCULAR VOLUME 102 FL (80-99); MEAN PLATELET VOLUME 11.4 FL (7.4-10.4); MONOCYTES # (AUTO) 0.9 X 10^3 (0.0-1.0); MONOCYTES % (AUTO) 13 % (0-12); NEUTROPHILS # (AUTO) 4.2 X 10^3 (1.8-7.8); NEUTROPHILS % (AUTO) 60 % (42-75); PLATELET COUNT 74 10^3/uL (130-400); RED CELL DISTRIBUTION WIDTH 13.4 % (10.0-14.5)
[2020-02-15 05:37] LABS: CHLORIDE 96 MMOL/L (98-107); POTASSIUM 2.8 MMOL/L (3.6-5.0); SODIUM 134 MMOL/L (135-145)
[2020-02-15 05:39] LABS: GLUCOSE 85 MG/DL (70-105)
[2020-02-15 05:40] LABS: CARBON DIOXIDE 25 MMOL/L (21-32)
[2020-02-15 05:42] LABS: CREATININE SERUM 0.71 MG/DL (0.60-1.30); GFR ESTIMATED > 60; PHOSPHORUS 2.2 MG/DL (2.3-4.7)
[2020-02-15 05:43] LABS: BUN/CREATININE RATIO 7
[2020-02-15 05:45] LABS: MAGNESIUM 1.4 MG/DL (1.6-2.4)
[2020-02-15] MEDS ORDERED: POTASSIUM CL 10MEQ/50ML IVPB 50 ML IV SCH (06:00)
[2020-02-15] MEDS ORDERED: KCL 20 MEQ TAB (K-DUR) PO SCH (06:00)
[2020-02-15] MEDS ORDERED: MAGNESIUM 1 GM/100 ML IVPB 100 ML IV SCH (06:00)
[2020-02-15] MEDS ORDERED: POT PHOS/NA PHOS (K-PHOS NEUTRAL) PO ONE (08:15)
[2020-02-15] MEDS ORDERED: KCL 20 MEQ TAB (K-DUR) PO ONE (08:15)
[2020-02-15] MEDS ORDERED: THIAMINE 100 MG (VITAMIN B-1) TAB PO ONE (08:15)
[2020-02-15] MEDS ORDERED: MULTIVIT W/MINERALS TAB (THERAGRAN M) PO ONE (08:15)
[2020-02-15] MEDS: POTASSIUM CL 10MEQ/50ML IVPB 50 ML IV SCH ×5 (09:16→13:28)
[2020-02-15] MEDS: MAGNESIUM 1 GM/100 ML IVPB 100 ML IV SCH ×5 (09:17→13:28)
[2020-02-15] MEDS: KCL 20 MEQ TAB (K-DUR) PO SCH (09:18)
[2020-02-15] MEDS: FOLIC ACID 1 MG TAB PO SCH (09:18)
--- NOTE | 2020-02-15 10:23 | History & Physical-Hospitalist ---
History of Present Illness Date Seen 02/15/20 Time Seen by a Provider: 10:30 Attending Physician Ami Lawrence MD PCP Gertrude Morales DO Referring Physician Date of Admission Feb 14, 2020 at 22:17 Home Medications & Allergies Home Medications Reviewed patient Home Medication Reconciliation performed by pharmacy medication reconciliations lead maintenance technician and/or nursing. Patients Allergies have been reviewed. Allergies Allergies Coded Allergies No Known Drug Allergies (Unverified10/06/17) Past Vdziloj-Auaxjf-Dfmkru Hx Patient Social History Alcohol Use: Past History Number of Drinks Today: DD Alcohol Beverage of Choice: Rum Recreational Drug Use: No Type Used: Cigarettes 2nd Hand Smoke Exposure: Yes Recent Foreign Travel: No Contact w/other who traveled: No Recent Hopitalizations: No Recent Infectious Disease Expo: No Seasonal Allergies Seasonal Allergies: Yes Past Medical History Surgeries: Abdominal HEENT: Tinnitis Did You Recieve Any Treatments: No History of Blood Disorders: No Family History Patient reports no known family medical history. No Pertinent Family Hx Physical Exam Physical Exam Vital Signs Vital Signs - First Documented 02/14/20 02/14/20 22:01 22:58 Temp 37.0 Pulse 107 Resp 20 B/P (MAP) 115/80 (92) Pulse Ox 100 O2 Delivery Room Air Capillary Refill : Less Than 3 Seconds Height, Weight, BMI Height: 6'0" Weight: 200lbs. 0.0oz. 90.057216nm; 26.48 BMI Method:Stated Results Results/Procedures Labs Laboratory Tests 02/15/20 04:42 Patient resulted labs reviewed. Clinical Quality Measures DVT/VTE Risk/Contraindication: Risk Factor Score Per Nursin RFS Level Per Nursing on Admit: 1=Low/No VTE PPX GERTRUDE MORALES DO Feb 15, 2020 10:23
--- NOTE | 2020-02-15 10:53 | History & Physical-Hospitalist ---
History of Present Illness HPI/Chief Complaint Carlitos Degroot is a 34-year-old male with history of alcohol abuse who presented with seizure-like activity. He is reportedly at work at [employer] when he fell to the floor and hit his head on a shelf. Upon EMS arrival, he was lethargic and postictal. He was brought to the emergency room. He denies any history of seizures. He is an every day drinker. He says he has between 3 and 6 beers per day and sometimes a mixed drink. He reports that he has had alcohol withdrawals in the past whenever he was drinking whiskey. He denies any fevers or chills. He denies any shortness of breath or cough. He denies any abdominal pain, nausea, vomiting, or diarrhea. He denies any headache. He has a very slight tremor. Source: patient Exam Limitations: no limitations Date Seen 02/15/20 Time Seen by a Provider: 09:30 Attending Physician Ami Lawrence MD PCP Gertrude Morales DO Referring Physician Date of Admission Feb 14, 2020 at 22:17 Home Medications & Allergies Home Medications Reviewed patient Home Medication Reconciliation performed by pharmacy medication reconciliations brain wave technician and/or nursing. Patients Allergies have been reviewed. Allergies Allergies Coded Allergies No Known Drug Allergies (Unverified10/06/17) Past Fvfxgya-Jvhgxp-Byndsg Hx Past Med/Social Hx: Reviewed Nursing Past Med/Soc Hx Patient Social History Alcohol Use: Past History Number of Drinks Today: DD Alcohol Beverage of Choice: Rum Recreational Drug Use: No Type Used: Cigarettes 2nd Hand Smoke Exposure: Yes Recent Foreign Travel: No Contact w/other who traveled: No Recent Hopitalizations: No Recent Infectious Disease Expo: No Seasonal Allergies Seasonal Allergies: Yes Past Medical History Surgeries: Abdominal HEENT: Tinnitis Did You Recieve Any Treatments: No History of Blood Disorders: No Family History Patient reports no known family medical history. No Pertinent Family Hx Review of Systems Constitutional: no symptoms reported EENTM: no symptoms reported Respiratory: no symptoms reported Cardiovascular: no symptoms reported Gastrointestinal: no symptoms reported Genitourinary: no symptoms reported Musculoskeletal: no symptoms reported Skin: no symptoms reported Psychiatric/Neurological: No Symptoms Reported Physical Exam Physical Exam Vital Signs Vital Signs - First Documented 02/14/20 02/14/20 22:01 22:58 Temp 37.0 Pulse 107 Resp 20 B/P (MAP) 115/80 (92) Pulse Ox 100 O2 Delivery Room Air Capillary Refill : Less Than 3 Seconds Height, Weight, BMI Height: 6'0" Weight: 200lbs. 0.0oz. [id number]; 26.48 BMI Method:Stated General Appearance: No Apparent Distress, WD/WN HEENT: PERRL/EOMI, Pharynx Normal Neck: Normal Inspection, Supple Respiratory: Lungs Clear, Normal Breath Sounds, No Respiratory Distress Cardiovascular: Regular Rate, Rhythm, No Edema, No Murmur Gastrointestinal: Normal Bowel Sounds, Non Tender, Soft Extremity: Normal Inspection, Non Tender, No Pedal Edema Neurologic/Psychiatric: Alert, Oriented x3, No Motor/Sensory Deficits, Normal Mood/Affect, Other (slight tremor) Skin: Normal Color, Warm/Dry Results Results/Procedures Labs Laboratory Tests 02/15/20 04:42 Patient resulted labs reviewed. Imaging: Reviewed Imaging Report Assessment/Plan Admission Diagnosis alcohol dependence with acute withdrawal Admission Status: Inpatient Order (span 2 midnights) Reason for Inpatient Admission: alcohol withdrawal treatment Assessment and Plan alcohol dependence with acute withdrawal alcohol withdrawal seizure acute alcoholic hepatitis Hypokalemia Hypomagnesemia Hypophosphatemia Thrombocytopenia CT head without acute abnormalities Started on CIWA protocol, continue continue to monitor and replace electrolytes as needed add a multivitamin, folate acid, and thiamine repeat labs tomorrow morning DVT prophylaxis: Lovenox Diagnosis/Problems Diagnosis/Problems (1) Alcohol dependence with withdrawal with complication Status: Acute (2) Alcohol withdrawal seizure Status: Acute Qualifiers: Complication of substance-induced condition: with unspecified complication Qualified Codes: F10.239 - Alcohol dependence with withdrawal, unspecified; R56.9 - Unspecified convulsions (3) Hypokalemia Status: Acute (4) Hypomagnesemia Status: Acute (5) Hypophosphatemia Status: Acute (6) Thrombocytopenia Status: Acute Clinical Quality Measures DVT/VTE Risk/Contraindication: Risk Factor Score Per Nursin RFS Level Per Nursing on Admit: 1=Low/No VTE PPX AMI LAWRENCE MD Feb 15, 2020 10:53
[2020-02-15] MEDS: LORazepam 0.5 MG (ATIVAN) TABLET PO SCH (21:13)
[2020-02-16] VITALS: BP 105/64
[2020-02-16] MEDS: LACTATED RINGERS 1,000 ML IV SCH ×2 (00:02→06:28)
[2020-02-16 04:04] VITALS: BP 119/69
[2020-02-16] MEDS: POTASSIUM CL 10MEQ/50ML IVPB 50 ML IV SCH (05:45)
[2020-02-16] MEDS: MAGNESIUM 1 GM/100 ML IVPB 100 ML IV SCH (05:45)
[2020-02-16] MEDS: LORazepam 0.5 MG (ATIVAN) TABLET PO SCH (06:28)
[2020-02-16] MEDS ORDERED: THIAMINE 100 MG (VITAMIN B-1) TAB PO SCH (07:00)
[2020-02-16] MEDS ORDERED: MULTIVIT W/MINERALS TAB (THERAGRAN M) PO SCH (07:00)
[2020-02-16 07:02] LABS: BASOPHILS % (AUTO) 0 % (0-10); EOSINOPHILS % (AUTO) 1 % (0-10); HEMATOCRIT 42 % (40-54); HEMOGLOBIN 15.3 G/DL (13.3-17.7); LYMPHOCYTES # (AUTO) 1.7 X 10^3 (1.0-4.0); LYMPHOCYTES % (AUTO) 31 % (12-44); MEAN CORPUSCULAR HEMOGLOBIN 37 PG (25-34); MEAN CORPUSCULAR HGB CONC 36 G/DL (32-36); MEAN CORPUSCULAR VOLUME 103 FL (80-99); MEAN PLATELET VOLUME 11.8 FL (7.4-10.4); MONOCYTES # (AUTO) 0.8 X 10^3 (0.0-1.0); MONOCYTES % (AUTO) 15 % (0-12); NEUTROPHILS # (AUTO) 2.9 X 10^3 (1.8-7.8); NEUTROPHILS % (AUTO) 53 % (42-75); PLATELET COUNT 63 10^3/uL (130-400); RED CELL DISTRIBUTION WIDTH 13.2 % (10.0-14.5); WHITE BLOOD COUNT 5.5 10^3/uL (4.3-11.0)
[2020-02-16 07:20] LABS: ALBUMIN 3.6 GM/DL (3.2-4.5); CHLORIDE 102 MMOL/L (98-107); POTASSIUM 3.2 MMOL/L (3.6-5.0); SODIUM 136 MMOL/L (135-145)
[2020-02-16 07:21] LABS: CALCIUM 8.6 MG/DL (8.5-10.1)
[2020-02-16 07:23] LABS: GLUCOSE 84 MG/DL (70-105); TOTAL PROTEIN 6.6 GM/DL (6.4-8.2)
[2020-02-16 07:24] LABS: BILIRUBIN,TOTAL 2.6 MG/DL (0.1-1.0); CARBON DIOXIDE 20 MMOL/L (21-32)
[2020-02-16 07:26] LABS: ALKALINE PHOSPHATASE 81 U/L (40-136); CREATININE SERUM 0.65 MG/DL (0.60-1.30); GFR ESTIMATED > 60; PHOSPHORUS 2.1 MG/DL (2.3-4.7)
[2020-02-16 07:27] LABS: BUN/CREATININE RATIO 6
[2020-02-16 07:28] LABS: BILIRUBIN,DIRECT 1.5 MG/DL (0.0-0.3); BILIRUBIN,INDIRECT 1.1 MG/DL
[2020-02-16 07:29] LABS: ALANINE AMINOTRANSFERASE 45 U/L (0-55); MAGNESIUM 1.9 MG/DL (1.6-2.4)
[2020-02-16] MEDS: KCL 20 MEQ TAB (K-DUR) PO SCH (07:39)
[2020-02-16] MEDS ORDERED: KCL 20 MEQ TAB (K-DUR) PO ONE ×2 (07:45→09:45)
[2020-02-16 07:55] VITALS: BP 117/79
[2020-02-16] MEDS: FOLIC ACID 1 MG TAB PO SCH (08:31)
[2020-02-16 09:50] VITALS: BP 117/79
--- NOTE | 2020-02-16 12:16 | Discharge Summary ---
Discharge Summary Hospital Course Was the Problem List Reviewed?: Yes Problems/Dx: (1) Alcohol dependence with withdrawal with complication Status: Acute (2) Alcohol withdrawal seizure Status: Acute Qualifiers: Qualified Codes: F10.239 - Alcohol dependence with withdrawal, unspecified; R56.9 - Unspecified convulsions (3) Hypokalemia Status: Acute (4) Hypomagnesemia Status: Acute (5) Hypophosphatemia Status: Acute (6) Thrombocytopenia Status: Acute Hospital Course Date of Admission: Feb 14, 2020 at 22:17 Admission Diagnosis : Alcohol dependence with withdrawal with complication Family Physician/Provider: Gertrude Morales DO Date of Discharge: 02/16/20 Discharge Diagnosis: Alcohol dependence with withdrawal with complication Hospital Course: Carlitos Degroot is a 34-year-old male with alcohol dependence who presented with seizure. He abruptly quit drinking a couple days prior to his admission. He de nies any history of alcohol withdrawal seizures. He had recently been started on propranolol which was thought to be masking some of the symptoms of his alcohol withdrawal. He was monitored and received Ativan through the [facility] protocol. He required a minimal amount of Ativan. His course was complicated by acute alcoholic hepatitis and thrombocytopenia which were stable. He also had electrolyte abnormalities with hypokalemia, hypophosphatemia, and hypomagnesemia which were all replaced. He was discharged home in stable condition. He should follow-up with his PCP in about a week. Labs and Pending Lab Test: Laboratory Tests 02/16/20 05:47: White Blood Count 5.5, Red Blood Count 4.09L, Hemoglobin 15.3, Hematocrit 42, Mean Corpuscular Volume 103H, Mean Corpuscular Hemoglobin 37H, Mean Corpuscular Hemoglobin Concent 36, Red Cell Distribution Width 13.2, Platelet Count 63L, Mean Platelet Volume 11.8H, Neutrophils (%) (Auto) 53, Lymphocytes (%) (Auto) 31, Monocytes (%) (Auto) 15H, Eosinophils (%) (Auto) 1, Basophils (%) (Auto) 0, Neutrophils # (Auto) 2.9, Lymphocytes # (Auto) 1.7, Monocytes # (Auto) 0.8, Eosinophils # (Auto) 0.0, Basophils # (Auto) 0.0, Sodium Level 136, Potassium Level 3.2L, Chloride Level 102, Carbon Dioxide Level 20L, Anion Gap 14, Blood Urea Nitrogen 4L, Creatinine 0.65, Estimat Glomerular Filtration Rate > 60, BUN/Creatinine Ratio 6, Glucose Level 84, Calcium Level 8.6, Phosphorus Level 2.1L, Magnesium Level 1.9, Total Bilirubin 2.6H, Direct Bilirubin 1.5H, Indirect Bilirubin 1.1, Aspartate Amino Transf (AST/SGOT) 141H, Alanine Aminotransferase (ALT/SGPT) 45, Alkaline Phosphatase 81, Total Protein 6.6, Albumin 3.6 Home Meds Active No Active Prescriptions or Reported Medications Assessment/Pt Instructions Take medications as prescribed. Abstain from alcohol use. Follow-up with your primary care physician in about a week. Discharge Planning: <30 minutes discharge planning Discharge Instructions Discharge Diet: No Restrictions Activity as Tolerated: Yes Discharge Physical Examination Vital Signs Vital Signs Date Time Temp Pulse Resp B/P (MAP) Pulse Ox O2 Delivery O2 Flow Rate FiO2 02/16/20 09:50 36.5 105 18 117/79 97 Room Air General Appearance: No Apparent Distress, WD/WN HEENT: PERRL/EOMI, Pharynx Normal Respiratory: Lungs Clear, Normal Breath Sounds, No Respiratory Distress Cardiovascular: Regular Rate, Rhythm, No Edema, No Murmur Gastrointestinal: Normal Bowel Sounds, Non Tender, Soft Extremity: Normal Inspection, Non Tender, No Pedal Edema Skin: Normal Color, Warm/Dry Neurologic/Psychiatric: Alert, Oriented x3, No Motor/Sensory Deficits, Normal Mood/Affect Allergies: Coded Allergies: No Known Drug Allergies (Unverified , 10/06/17) Discharge Summary Date of Admission Feb 14, 2020 at 22:17 Date of Discharge Feb 16, 2020 at 09:50 Discharge Date: Feb 16, 2020 Discharge Time: 09:50 Admission Diagnosis alcohol dependence with acute withdrawal Discharge Diagnosis alcohol dependence with acute withdrawal (1) Alcohol dependence with withdrawal with complication Status: Acute (2) Alcohol withdrawal seizure Status: Acute Qualifiers: Qualified Codes: F10.239 - Alcohol dependence with withdrawal, unspecified; R56.9 - Unspecified convulsions (3) Hypokalemia Status: Acute (4) Hypomagnesemia Status: Acute (5) Hypophosphatemia Status: Acute (6) Thrombocytopenia Status: Acute Clinical Quality Measures DVT/VTE Risk/Contraindication: Risk Factor Score Per Nursin RFS Level Per Nursing on Admit: 1=Low/No VTE PPX MARTINA MIJARES MD Feb 16, 2020 12:16
== END 2020-02-16 09:50 | disposition home or self-care (01) | DRG 897 ==
LOC: EDUNIT# 22:01 → ER 22:03 → ICU 22:17 → 4TH 02-15 02:00
PROVIDERS: ADMIT Internal Medicine; ATTEND Internal Medicine
DX: F10.239 Alcohol dependence with withdrawal, unspecified (principal); R56.9 Unspecified convulsions; K70.10 Alcoholic hepatitis without ascites; E87.6 Hypokalemia; E83.42 Hypomagnesemia; E83.39 Other disorders of phosphorus metabolism; D69.6 Thrombocytopenia, unspecified
CPT/HCPCS: 36415; 80048; 80076; 83735; 84100; 85025; 87081

== ENCOUNTER 2020-02-28 16:32 | Inpatient (IN) | payer BC ==
[~2020-02-28] VITALS: Ht 180.3 cm; Wt 80.3 kg
[2020-02-28] MEDS ORDERED: LORazepam INJ 2 MG/ML (ATIVAN) VIAL IVP ONE (16:45)
[2020-02-28] MEDS ORDERED: NS IV 1000 ML 1,000 ML IV SCH (16:45)
--- NOTE | 2020-02-28 16:45 | ED General ---
General Stated Complaint: SEIZURES Source of Information: Patient Exam Limitations: No Limitations History of Present Illness Date Seen by Provider: Feb 28, 2020 Time Seen by Provider: 16:42 Initial Comments To ER with reports of seizure-like activity arrives by EMS from Dr. Morales's office where he presented to establish care following recent hospitalization on February 13 for suspected alcohol withdrawal seizures. At that time during the first visit of that day he said he drank 3-4 beers a day. He went home had a seizure and came back the same day and reported 6-8 beers a day. He now reports that he drinks about a pint of whiskey Last him about 2 days, his most recent intake was about 3 days ago. Timing/Duration: 1-2 Days Severity: Moderate Allergies and Home Medications Allergies Coded Allergies: No Known Drug Allergies (Unverified , 10/06/17) Home Medications No Active Prescriptions or Reported Meds Patient Home Medication List Home Medication List Reviewed: Yes Review of Systems Review of Systems Constitutional: see HPI EENTM: see HPI Respiratory: no symptoms reported Cardiovascular: no symptoms reported Genitourinary: no symptoms reported Musculoskeletal: no symptoms reported Psychiatric/Neurological: Seizure Hematologic/Lymphatic: No Symptoms Reported Past Akidtfc-Xtbadd-Ukcvlm Hx Patient Social History Alcohol Beverage of Choice: Rum Type Used: Cigarettes 2nd Hand Smoke Exposure: Yes Recent Hopitalizations: No Seasonal Allergies Seasonal Allergies: Yes Past Medical History Surgeries: Yes (inguinal HERNIA repair) Abdominal Respiratory: Yes (mycoplasma pneumonia at 12 yrs old) Pneumonia Cardiac: No Neurological: No Genitourinary: No Gastrointestinal: No Musculoskeletal: No Endocrine: No HEENT: No Tinnitis Cancer: No Did You Recieve Any Treatments: No Psychosocial: No Integumentary: No Blood Disorders: No Family Medical History Patient reports no known family medical history. No Pertinent Family Hx Physical Exam Vital Signs Vital Signs - First Documented 02/28/20 16:36 Temp 36.2 Pulse 112 Resp 20 B/P (MAP) 122/85 (97) Pulse Ox 94 O2 Delivery Room Air Capillary Refill : Height, Weight, BMI Height: 6'0" Weight: 200lbs. 0.0oz. [id number]; 26.48 BMI Method:Stated General Appearance: No Apparent Distress, WD/WN, Other (alert, oriented, tremulous. Small bruising/abrasion to the right side of his tongue where he bit it) Eyes: Bilateral Eye Normal Inspection, Bilateral Eye PERRL, Bilateral Eye EOMI HEENT: PERRL/EOMI, TMs Normal Respiratory: No Accessory Muscle Use, No Respiratory Distress Cardiovascular: Normal Peripheral Pulses, Tachycardia Gastrointestinal: Non Tender, Soft Extremity: Normal Capillary Refill, Normal Inspection Neurologic/Psychiatric: Alert, Oriented x3 Skin: Normal Color, Warm/Dry Progress/Results/Core Measures Suspected Sepsis SIRS Temperature: Pulse: Respiratory Rate: Laboratory Tests 02/28/20 16:39: White Blood Count 9.0 Blood Pressure / Mean: Laboratory Tests 02/28/20 16:39: Creatinine 0.78, Platelet Count 113L, Total Bilirubin 2.2H Results/Orders Lab Results Laboratory Tests Test 02/28/20 16:39 02/28/20 17:00 Range/Units White Blood Count 9.0 4.3-11.0 10^3/uL Red Blood Count 4.58 4.35-5.85 10^6/uL Hemoglobin 16.8 13.3-17.7 G/DL Hematocrit 46 40-54 % Mean Corpuscular Volume 101 H 80-99 FL Mean Corpuscular Hemoglobin 37 H 25-34 PG Mean Corpuscular Hemoglobin Concent 36 32-36 G/DL Red Cell Distribution Width 13.2 10.0-14.5 % Platelet Count 113 L 130-400 10^3/uL Mean Platelet Volume 10.8 H 7.4-10.4 FL Neutrophils (%) (Auto) 75 42-75 % Lymphocytes (%) (Auto) 15 12-44 % Monocytes (%) (Auto) 11 0-12 % Eosinophils (%) (Auto) 0 0-10 % Basophils (%) (Auto) 0 0-10 % Neutrophils # (Auto) 6.7 1.8-7.8 X 10^3 Lymphocytes # (Auto) 1.3 1.0-4.0 X 10^3 Monocytes # (Auto) 1.0 0.0-1.0 X 10^3 Eosinophils # (Auto) 0.0 0.0-0.3 10^3/uL Basophils # (Auto) 0.0 0.0-0.1 10^3/uL Sodium Level 135 135-145 MMOL/L Potassium Level 3.4 L 3.6-5.0 MMOL/L Chloride Level 93 L 98-107 MMOL/L Carbon Dioxide Level 27 21-32 MMOL/L Anion Gap 15 H 5-14 MMOL/L Blood Urea Nitrogen 4 L 7-18 MG/DL Creatinine 0.78 0.60-1.30 MG/DL Estimat Glomerular Filtration Rate > 60 BUN/Creatinine Ratio 5 Glucose Level 139 H 70-105 MG/DL Calcium Level 9.5 8.5-10.1 MG/DL Corrected Calcium 9.3 8.5-10.1 MG/DL Total Bilirubin 2.2 H 0.1-1.0 MG/DL Aspartate Amino Transf (AST/SGOT) 121 H 5-34 U/L Alanine Aminotransferase (ALT/SGPT) 78 H 0-55 U/L Alkaline Phosphatase 94 40-136 U/L Total Protein 7.6 6.4-8.2 GM/DL Albumin 4.2 3.2-4.5 GM/DL Serum Alcohol < 10 <10 MG/DL Urine Color ORANGE Urine Clarity CLEAR Urine pH 7.0 5-9 Urine Specific [place] 1.015 L 1.016-1.022 Urine Protein 2+ H NEGATIVE Urine Glucose (UA) NEGATIVE NEGATIVE Urine Ketones 1+ H NEGATIVE Urine Nitrite NEGATIVE NEGATIVE Urine Bilirubin 1+ H NEGATIVE Urine Urobilinogen 2.0 < = 1.0 MG/DL Urine Leukocyte Esterase NEGATIVE NEGATIVE Urine RBC (Auto) NEGATIVE NEGATIVE Urine RBC NONE /HPF Urine WBC RARE /HPF Urine Squamous Epithelial Cells NONE /HPF Urine Crystals NONE /LPF Urine Bacteria NEGATIVE /HPF Urine Casts NONE /LPF Urine Mucus NEGATIVE /LPF Urine Culture Indicated NO Urine Opiates Screen NEGATIVE NEGATIVE Urine Oxycodone Screen NEGATIVE NEGATIVE Urine Methadone Screen NEGATIVE NEGATIVE Urine Propoxyphene Screen NEGATIVE NEGATIVE Urine Barbiturates Screen NEGATIVE NEGATIVE Ur Tricyclic Antidepressants Screen NEGATIVE NEGATIVE Urine Phencyclidine Screen NEGATIVE NEGATIVE Urine Amphetamines Screen NEGATIVE NEGATIVE Urine Methamphetamines Screen NEGATIVE NEGATIVE Urine Benzodiazepines Screen NEGATIVE NEGATIVE Urine Cocaine Screen NEGATIVE NEGATIVE Urine Cannabinoids Screen NEGATIVE NEGATIVE My Orders Orders - MEGAN HERNANDEZ JEWELRY ESTIMATOR Cbc With Automated Diff (02/28/20 16:34) Comprehensive Metabolic Panel (02/28/20 16:34) Alcohol (02/28/20 16:34) Ua Culture If Indicated (02/28/20 16:34) Drug Screen Stat (Urine) (02/28/20 16:34) Ed Iv/Invasive Line Start (02/28/20 16:34) Ct Head Wo (02/28/20 16:34) Lorazepam Injection (Ativan Injection) (02/28/20 16:45) Ns Iv 1000 Ml (Sodium Chloride 0.9%) (02/28/20 16:45) Medications Given in ED Current Medications Medications Dose Ordered Sig/Jose Route Start Time Stop Time Status Last Admin Dose Admin Lorazepam 2 mg ONCE ONCE IVP 02/28/20 16:45 02/28/20 16:47 DC 02/28/20 16:58 2 MG Vital Signs/I&O 02/28/20 16:36 Temp 36.2 Pulse 112 Resp 20 B/P (MAP) 122/85 (97) Pulse Ox 94 O2 Delivery Room Air Capillary Refill : Departure Communication (Admissions) Time/Spoke to Admitting Phy: 17:[address] Lawrence, agrees with admission using [facility] protocol. Impression Primary Impression: Alcohol dependence with withdrawal with complication Disposition: ADMITTED INPATIENT Condition: Stable Admissions Decision to Admit Reason: Admit from ER (General) Decision to Admit/Date: Feb 28, 2020 Time/Decision to Admit Time: 17:48 Departure-Patient Inst. Referrals: LI MORALES DO (PCP/Family) Primary Care Physician Scripts No Active Prescriptions or Reported Meds MEGAN HERNANDEZ APRN Feb 28, 2020 16:45
[2020-02-28 16:51] LABS: BASOPHILS % (AUTO) 0 % (0-10); EOSINOPHILS % (AUTO) 0 % (0-10); HEMATOCRIT 46 % (40-54); HEMOGLOBIN 16.8 G/DL (13.3-17.7); LYMPHOCYTES # (AUTO) 1.3 X 10^3 (1.0-4.0); LYMPHOCYTES % (AUTO) 15 % (12-44); MEAN CORPUSCULAR HEMOGLOBIN 37 PG (25-34); MEAN CORPUSCULAR HGB CONC 36 G/DL (32-36); MEAN CORPUSCULAR VOLUME 101 FL (80-99); MEAN PLATELET VOLUME 10.8 FL (7.4-10.4); MONOCYTES % (AUTO) 11 % (0-12); NEUTROPHILS # (AUTO) 6.7 X 10^3 (1.8-7.8); NEUTROPHILS % (AUTO) 75 % (42-75); PLATELET COUNT 113 10^3/uL (130-400); RED CELL DISTRIBUTION WIDTH 13.2 % (10.0-14.5)
[2020-02-28 16:59] LABS: ALBUMIN 4.2 GM/DL (3.2-4.5); CHLORIDE 93 MMOL/L (98-107); POTASSIUM 3.4 MMOL/L (3.6-5.0); SODIUM 135 MMOL/L (135-145)
[2020-02-28 17:00] LABS: CALCIUM 9.5 MG/DL (8.5-10.1)
[2020-02-28 17:01] LABS: GLUCOSE 139 MG/DL (70-105); TOTAL PROTEIN 7.6 GM/DL (6.4-8.2)
[2020-02-28 17:02] LABS: CARBON DIOXIDE 27 MMOL/L (21-32)
[2020-02-28 17:03] LABS: BILIRUBIN,TOTAL 2.2 MG/DL (0.1-1.0)
[2020-02-28 17:05] LABS: ALKALINE PHOSPHATASE 94 U/L (40-136); CREATININE SERUM 0.78 MG/DL (0.60-1.30); GFR ESTIMATED > 60
[2020-02-28 17:06] LABS: BUN/CREATININE RATIO 5
[2020-02-28 17:08] LABS: ALANINE AMINOTRANSFERASE 78 U/L (0-55)
[2020-02-28 17:11] LABS: CLARITY,URINE CLEAR; COLOR,URINE ORANGE; GLUCOSE, URINE (UA) NEGATIVE (NEGATIVE); KETONES,URINE 1+ (NEGATIVE); LEUKOCYTE ESTERASE ,URINE NEGATIVE (NEGATIVE); NITRITE,URINE NEGATIVE (NEGATIVE); PROTEIN,URINE 2+ (NEGATIVE)
[2020-02-28 17:20] LABS: BILIRUBIN,URINE 1+ (NEGATIVE)
[2020-02-28 17:22] LABS: BACTERIA,URINE NEGATIVE /HPF; WBC,URINE RARE /HPF
[2020-02-28 17:23] LABS: AMPHETAMINE SCREEN, URINE NEGATIVE (NEGATIVE); BARBITURATE SCREEN URINE NEGATIVE (NEGATIVE); BENZODIAZEPINES SCREEN URINE NEGATIVE (NEGATIVE); CANNABINOID SCREEN, URINE NEGATIVE (NEGATIVE); COCAINE SCREEN URINE NEGATIVE (NEGATIVE); METHADONE STAT NEGATIVE (NEGATIVE); METHAMPHETAMINE SCREEN URINE S NEGATIVE (NEGATIVE); OPIATE SCREEN URINE NEGATIVE (NEGATIVE); OXYCODONE STAT NEGATIVE (NEGATIVE); PROPOXYPHENE STAT NEGATIVE (NEGATIVE); TRICYCLIC ANTIDEPRESSANTS SCRE NEGATIVE (NEGATIVE)
--- NOTE | 2020-02-28 17:32 | Diagnostic Imaging Report ---
PROCEDURE: CT head without contrast. TECHNIQUE: Multiple contiguous axial images were obtained through the brain without the use of intravenous contrast. Auto Exposure Controls were utilized during the CT exam to meet ALARA standards for radiation dose reduction. INDICATION: Seizure. COMPARISON: Comparison is made to study of 02/14/2020. CT HEAD: CT images of the head were obtained. FINDINGS: Ventricles and sulci are within normal limits for size. There is no intracranial hemorrhage identified. There is no abnormal mass effect or shift of midline structures. IMPRESSION: Unremarkable CT of the head. Dictated by: Dictated on workstation # [id number]
--- NOTE | 2020-02-28 18:09 | NUR ---
Report called to JI Marcelo at this time. Fozia stated material handler 2nd shift would call for pt when room is ready.
--- NOTE | 2020-02-28 19:44 | NUR ---
ISAMAR CONWAY admitted to room CU12-2, with an admitting diagnosis of ETOH W/D Seizure, on 02/28/20 from ED via , accompanied by staff.ISAMAR CONWAY introduced to surroundings, call light, bed controls, phone, TV, temperature control, lights, meal times, smoking policy, visitor policy, side rail policy, bathrooms and showers. Patient Rights given to patient in the handbook. ISAMAR CONWAY verbalizes understanding that [facility] is not responsible for the loss or damage to any personal effects or valuables that are kept in the patients possession during their hospitalization. The following Patient Care Plans were discussed with the patient: Discharge Planning, pain management,protocols, and activity. ISAMAR CONWAY verbalizes understanding of Interdisciplinary Patient Education. Patient and/or family were informed about the Rapid Response Team and its purpose.
[2020-02-28 19:52] VITALS: BP 122/77
[2020-02-28] MEDS ORDERED: 1/2 NS IV SOLUTION 1,000 ML IV PRN (19:58)
[2020-02-28 20:00] VITALS: BP 110/80
[2020-02-28] MEDS ORDERED: D5 1/2 NS 1000 ML IV SOLUTION 1,000 ML IV PRN (20:00)
[2020-02-28] MEDS ORDERED: LORazepam 1 MG (ATIVAN) TAB PO PRN (20:00)
[2020-02-28] MEDS ORDERED: LORazepam INJ 2 MG/ML (ATIVAN) VIAL IV PRN (20:00)
[2020-02-28] MEDS ORDERED: ANTACID SUSP 30 ML UDC (MYLANTA) PO PRN (20:00)
[2020-02-28] MEDS ORDERED: LORazepam INJ 2 MG/ML (ATIVAN) VIAL IM/IV PRN (20:00)
[2020-02-28] MEDS ORDERED: ONDANSETRON 4 MG/2 ML (SDV) Z0FRAN IV PRN (20:00)
[2020-02-28] MEDS ORDERED: ONDANSETRON 4 MG (ZOFRAN) ORAL DISSOLVE TAB SL PRN (20:00)
[2020-02-28] MEDS ORDERED: SENNA W/DOCUSATE (SENOKOT S) TABLET PO PRN (20:00)
[2020-02-28 20:05] VITALS: BP 122/77
[2020-02-28 20:07] LABS: INR 1.2 (0.8-1.4); PROTHROMBIN TIME PATIENT 15.6 SEC (12.2-14.7)
[2020-02-28] MEDS: D5 1/2 NS W/KCL 20 MEQ/L 1,000 ML IV SCH (20:12)
[2020-02-28] MEDS: THIAMINE INJECTION 100 MG, FOLIC ACID INJECTION 1 MG, MAGNESIUM SULFATE 2 GM, VITAMIN M... IV SCH ×10 (20:12→20:33)
[2020-02-28 21:00] VITALS: BP 118/76
[2020-02-28 22:00] VITALS: BP 99/70
[2020-02-28 23:00] VITALS: BP 100/72
[2020-02-29] VITALS (11 sets, daily range): BP systolic 90–112; BP diastolic 54–81
[2020-02-29] MEDS: D5 1/2 NS W/KCL 20 MEQ/L 1,000 ML IV SCH ×2 (03:05→08:50)
[2020-02-29] MEDS: THIAMINE INJECTION 100 MG, FOLIC ACID INJECTION 1 MG, MAGNESIUM SULFATE 2 GM, VITAMIN M... IV SCH ×10 (03:05→08:45)
[2020-02-29 03:32] LABS: BASOPHILS % (AUTO) 0 % (0-10); EOSINOPHILS % (AUTO) 1 % (0-10); HEMATOCRIT 44 % (40-54); HEMOGLOBIN 15.6 G/DL (13.3-17.7); LYMPHOCYTES # (AUTO) 1.4 X 10^3 (1.0-4.0); LYMPHOCYTES % (AUTO) 24 % (12-44); MEAN CORPUSCULAR HEMOGLOBIN 36 PG (25-34); MEAN CORPUSCULAR HGB CONC 36 G/DL (32-36); MEAN CORPUSCULAR VOLUME 103 FL (80-99); MEAN PLATELET VOLUME 10.8 FL (7.4-10.4); MONOCYTES # (AUTO) 0.6 X 10^3 (0.0-1.0); MONOCYTES % (AUTO) 11 % (0-12); NEUTROPHILS # (AUTO) 3.6 X 10^3 (1.8-7.8); NEUTROPHILS % (AUTO) 64 % (42-75); PLATELET COUNT 82 10^3/uL (130-400); RED CELL DISTRIBUTION WIDTH 13.1 % (10.0-14.5); WHITE BLOOD COUNT 5.6 10^3/uL (4.3-11.0)
[2020-02-29 03:52] LABS: ALBUMIN 3.6 GM/DL (3.2-4.5); CHLORIDE 99 MMOL/L (98-107); SODIUM 136 MMOL/L (135-145)
[2020-02-29 03:53] LABS: CALCIUM 8.7 MG/DL (8.5-10.1)
[2020-02-29 03:54] LABS: GLUCOSE 107 MG/DL (70-105)
[2020-02-29 03:55] LABS: TOTAL PROTEIN 6.5 GM/DL (6.4-8.2)
[2020-02-29 03:56] LABS: BILIRUBIN,TOTAL 1.7 MG/DL (0.1-1.0); CARBON DIOXIDE 23 MMOL/L (21-32)
[2020-02-29 03:58] LABS: ALKALINE PHOSPHATASE 76 U/L (40-136); CREATININE SERUM 0.65 MG/DL (0.60-1.30); GFR ESTIMATED > 60
[2020-02-29 03:59] LABS: BUN/CREATININE RATIO 6
[2020-02-29 04:01] LABS: ALANINE AMINOTRANSFERASE 56 U/L (0-55)
[2020-02-29] MEDS ORDERED: LEVE100015 PO (10:38)
--- NOTE | 2020-02-29 13:31 | Discharge Summary ---
Discharge Summary Hospital Course Was the Problem List Reviewed?: Yes Problems/Dx: (1) Seizure Status: Acute (2) Alcohol dependence with withdrawal with complication Status: Acute Hospital Course Date of Admission: Feb 28, 2020 at 17:46 Admission Diagnosis : Seizure Family Physician/Provider: Gertrude Morales DO Date of Discharge: 02/29/20 Discharge Diagnosis: Seizure Hospital Course: Carlitos Degroot is a 34-year-old male with history of alcohol dependence and alcohol withdrawal seizure who presented after having a seizure at his doctor's office. He was admitted to the intensive care unit and started on the alcohol withdrawal protocol. He did not have any significant withdrawals. He told different stories to multiple different people about when his last drink had been. He initially told me that it had been prior to his last hospitalization since his last drink. He told others that it been within the past few days. According to his significant other, he had a purchase alcohol on their bank card the day before he arrived. His alcohol level on arrival was undetectable. He underwent a CT head which showed no acute abnormalities. As the cause of his seizure was questionable, though likely alcohol-related, he was started on Keppra. He was instructed to abstain from alcohol. He should follow-up with his primary care provider in about a week. Labs and Pending Lab Test: Laboratory Tests 02/28/20 16:39: White Blood Count 9.0, Red Blood Count 4.58, Hemoglobin 16.8, Hematocrit 46, Mean Corpuscular Volume 101H, Mean Corpuscular Hemoglobin 37H, Mean Corpuscular Hemoglobin Concent 36, Red Cell Distribution Width 13.2, Platelet Count 113L, Mean Platelet Volume 10.8H, Neutrophils (%) (Auto) 75, Lymphocytes (%) (Auto) 15, Monocytes (%) (Auto) 11, Eosinophils (%) (Auto) 0, Basophils (%) (Auto) 0, Neutrophils # (Auto) 6.7, Lymphocytes # (Auto) 1.3, Monocytes # (Auto) 1.0, Eosinophils # (Auto) 0.0, Basophils # (Auto) 0.0, Prothrombin Time 15.6H, INR Comment 1.2, Activated Partial Thromboplast Time 30, Sodium Level 135, Potassium Level 3.4L, Chloride Level 93L, Carbon Dioxide Level 27, Anion Gap 15H, Blood Urea Nitrogen 4L, Creatinine 0.78, Estimat Glomerular Filtration Rate > 60, BUN/Creatinine Ratio 5, Glucose Level 139H, Calcium Level 9.5, Corrected Calcium 9.3, Total Bilirubin 2.2H, Aspartate Amino Transf (AST/SGOT) 121H, Alanine Aminotransferase (ALT/SGPT) 78H, Alkaline Phosphatase 94, Total Protein 7.6, Albumin 4.2, Serum Alcohol < 10 02/28/20 17:00: Urine Color ORANGE, Urine Clarity CLEAR, Urine pH 7.0, Urine Specific [place] 1.015L, Urine Protein 2+H, Urine Glucose (UA) NEGATIVE, Urine Ketones 1+H, Urine Nitrite NEGATIVE, Urine Bilirubin 1+H, Urine Urobilinogen 2.0, Urine Leukocyte Esterase NEGATIVE, Urine RBC (Auto) NEGATIVE, Urine RBC NONE, Urine WBC RARE, Urine Squamous Epithelial Cells NONE, Urine Crystals NONE, Urine Bacteria NEGATIVE, Urine Casts NONE, Urine Mucus NEGATIVE, Urine Culture Indicated NO, Urine Opiates Screen NEGATIVE, Urine Oxycodone Screen NEGATIVE, Urine Methadone Screen NEGATIVE, Urine Propoxyphene Screen NEGATIVE, Urine Barbiturates Screen NEGATIVE, Ur Tricyclic Antidepressants Screen NEGATIVE, Urine Phencyclidine Screen NEGATIVE, Urine Amphetamines Screen NEGATIVE, Urine Methamphetamines Screen NEGATIVE, Urine Benzodiazepines Screen NEGATIVE, Urine Cocaine Screen NEGATIVE, Urine Cannabinoids Screen NEGATIVE 02/29/20 03:09: White Blood Count 5.6, Red Blood Count 4.29L, Hemoglobin 15.6, Hematocrit 44, Mean Corpuscular Volume 103H, Mean Corpuscular Hemoglobin 36H, Mean Corpuscular Hemoglobin Concent 36, Red Cell Distribution Width 13.1, Platelet Count 82L, Mean Platelet Volume 10.8H, Neutrophils (%) (Auto) 64, Lymphocytes (%) (Auto) 24, Monocytes (%) (Auto) 11, Eosinophils (%) (Auto) 1, Basophils (%) (Auto) 0, Neutrophils # (Auto) 3.6, Lymphocytes # (Auto) 1.4, Monocytes # (Auto) 0.6, Eosinophils # (Auto) 0.0, Basophils # (Auto) 0.0, Sodium Level 136, Potassium Level 3.0L, Chloride Level 99, Carbon Dioxide Level 23, Anion Gap 14, Blood Urea Nitrogen 4L, Creatinine 0.65, Estimat Glomerular Filtration Rate > 60, BUN/Creatinine Ratio 6, Glucose Level 107H, Calcium Level 8.7, Corrected Calcium 9.0, Total Bilirubin 1.7H, Aspartate Amino Transf (AST/SGOT) 99H, Alanine Aminotransferase (ALT/SGPT) 56H, Alkaline Phosphatase 76, Total Protein 6.5, Albumin 3.6, Magnesium Level 2.1 Home Meds Active Keppra (Levetiracetam) 1,000 Mg Tablet 1,000 Mg PO BID 30 Days Assessment/Pt Instructions Take medications as prescribed. Begin taking Keppra for seizures. Follow-up with your primary care physician. Discharge Planning: <30 minutes discharge planning Discharge Instructions Discharge Diet: No Restrictions Activity as Tolerated: Yes Discharge Physical Examination Vital Signs Vital Signs Date Time Temp Pulse Resp B/P (MAP) Pulse Ox O2 Delivery O2 Flow Rate FiO2 02/29/20 11:05 02/29/20 10:00 86 14 92 Room Air 02/29/20 08:00 37.4 General Appearance: No Apparent Distress, WD/WN HEENT: PERRL/EOMI, Pharynx Normal Respiratory: Lungs Clear, Normal Breath Sounds, No Respiratory Distress Cardiovascular: Regular Rate, Rhythm, No Edema, No Murmur Gastrointestinal: Normal Bowel Sounds, Non Tender, Soft Extremity: Normal Inspection, Non Tender, No Pedal Edema Skin: Normal Color, Warm/Dry Neurologic/Psychiatric: Alert, Oriented x3, No Motor/Sensory Deficits, Normal Mood/Affect Allergies: Coded Allergies: No Known Drug Allergies (Unverified , 10/06/17) Copy Copies To 1: GERTRUDE MORALES DO Discharge Summary Date of Admission Feb 28, 2020 at 17:46 Date of Discharge Feb 29, 2020 at 11:05 Discharge Date: Feb 29, 2020 Discharge Time: 11:05 Admission Diagnosis Seizure Discharge Diagnosis (1) Seizure Status: Acute (2) Alcohol dependence with withdrawal with complication Status: Acute Clinical Quality Measures DVT/VTE Risk/Contraindication: Risk Factor Score Per Nursin RFS Level Per Nursing on Admit: 1=Low/No VTE PPX MARTINA MIJARES MD Feb 29, 2020 13:31
== END 2020-02-29 11:05 | disposition home or self-care (01) | DRG 897 ==
LOC: EDUNIT# 16:32 → ER 16:33 → ICU 17:46
PROVIDERS: ADMIT Internal Medicine; ATTEND Internal Medicine
DX: F10.288 Alcohol dependence with other alcohol-induced disorder (principal); G40.509 Epileptic seizures related to external causes, not intractable, without status epilepticus; F10.239 Alcohol dependence with withdrawal, unspecified
CPT/HCPCS: 36415; 70450; 80053; 80306; 80320; 81000; 83735; 85025; 85610; 85730; 87081

== ENCOUNTER 2020-04-12 08:52 | Emergency (ER) | payer BC ==
[~2020-04-12] VITALS: Ht 180.3 cm; Wt 84.0 kg
[~2020-04-12 08:52] MED LIST changes: +LEVE100015 PO
[2020-04-12] MEDS ORDERED: LACTATED RINGERS 1,000 ML IV ONE (09:02)
--- NOTE | 2020-04-12 09:09 | ED Abdominal Pain ---
General Stated Complaint: ABD PAIN Source of Information: Patient Exam Limitations: No Limitations History of Present Illness Date Seen by Provider: Apr 12, 2020 Time Seen by Provider: 08:50 Initial Comments Patient arrives to ER by private conveyance with chief complaint of left lower quadrant abdominal pain since , about 4 days ago. He rates it is tolerable, 5 out of 10, constant pain. He has taken ibuprofen 800 mg yesterday evening but nothing today. He is not having any nausea fever chills or diarrhea. No history of diverticulitis. No dysuria or back pain. He's had one left-sided inguinal hernia repair when he was a child. He's had a colonoscopy when he was a child for recurrent abdominal pain never came up with a problem. Last oral intake was yesterday food and a half a pot of coffee this morning. He does not follow routinely with a doctor but when he goes to a doctor he goes to the [facility] in [place]. He had some withdrawal seizures when checking into alcohol rehabilitation. He just got out in the last week. He is on Keppra, potassium and currently on amoxicillin for having a tooth extracted a couple days ago. No abdominal trauma. Allergies and Home Medications Allergies Coded Allergies: No Known Drug Allergies (Unverified , 10/06/17) Home Medications Levetiracetam 1,000 Mg Tablet, 1,000 MG PO BID Prescribed by: MARTINA MIJARES on 02/29/20 1038 Patient Home Medication List Home Medication List Reviewed: Yes Review of Systems Review of Systems Constitutional: No chills, No fever, No malaise EENTM: No Blurred Vision, No Double Vision Respiratory: Denies Cough, Denies Shortness of Air Cardiovascular: Denies Chest Pain, Denies Edema Gastrointestinal: See HPI, Abdominal Pain; Denies Diarrhea, Denies Nausea Genitourinary: Denies Burning, Denies Discharge Musculoskeletal: No back pain, No joint pain All Other Systems Reviewed Negative Unless Noted: Yes Past Ovlgmtw-Nlyamd-Bspree Hx Patient Social History Alcohol Use: Past History Alcohol Beverage of Choice: Whiskey (1-1/2 fifths/day) Smoking Status: Current Everyday Smoker Type Used: Cigarettes (3/4 day) 2nd Hand Smoke Exposure: Yes Recent Foreign Travel: No Contact w/Someone Who Travel: No Recent Hopitalizations: Yes (02/2020 seizure activity) Seasonal Allergies Seasonal Allergies: Yes Past Medical History Surgeries: Yes (inguinal HERNIA repair) Abdominal Respiratory: Yes (mycoplasma pneumonia at 12 yrs old) Pneumonia Cardiac: No Neurological: No Genitourinary: No Gastrointestinal: No Musculoskeletal: No Endocrine: No HEENT: No Tinnitis Cancer: No Did You Recieve Any Treatments: No Psychosocial: No Integumentary: No Blood Disorders: No Family Medical History Patient reports no known family medical history. No Pertinent Family Hx Physical Exam Vital Signs Vital Signs - First Documented 04/12/20 08:55 Temp 37.2 Pulse 98 B/P (MAP) 123/82 (96) Capillary Refill : Height/Weight/BMI Height: 6'0" Weight: 200lbs. 0.0oz. [id number]; 24.70 BMI Method:Stated General Appearance: WD/WN, mild distress HEENT: PERRL/EOMI, pharynx normal (oropharynx mildly dry) Neck: non-tender, full range of motion, normal inspection Respiratory: lungs clear, normal breath sounds, no respiratory distress, no accessory muscle use Cardiovascular: normal peripheral pulses, regular rate, rhythm Gastrointestinal: normal bowel sounds (quiescent), soft, tenderness (left lower quadrant with palpable bowel), other (negative for Rovsing, so as or other mesenteric signs) Extremities: normal range of motion, non-tender, normal inspection Neurologic/Psychiatric: alert, normal mood/affect, oriented x 3 Skin: normal color, warm/dry Progress/Results/Core Measures Results/Orders Lab Results Laboratory Tests Test 04/12/20 09:04 04/12/20 10:06 Range/Units White Blood Count 12.1 H 4.3-11.0 10^3/uL Red Blood Count 4.21 L 4.35-5.85 10^6/uL Hemoglobin 15.1 13.3-17.7 G/DL Hematocrit 43 40-54 % Mean Corpuscular Volume 102 H 80-99 FL Mean Corpuscular Hemoglobin 36 H 25-34 PG Mean Corpuscular Hemoglobin Concent 35 32-36 G/DL Red Cell Distribution Width 12.7 10.0-14.5 % Platelet Count 188 130-400 10^3/uL Mean Platelet Volume 10.5 H 7.4-10.4 FL Neutrophils (%) (Auto) 64 42-75 % Lymphocytes (%) (Auto) 23 12-44 % Monocytes (%) (Auto) 12 0-12 % Eosinophils (%) (Auto) 1 0-10 % Basophils (%) (Auto) 0 0-10 % Neutrophils # (Auto) 7.8 1.8-7.8 X 10^3 Lymphocytes # (Auto) 2.8 1.0-4.0 X 10^3 Monocytes # (Auto) 1.5 H 0.0-1.0 X 10^3 Eosinophils # (Auto) 0.1 0.0-0.3 10^3/uL Basophils # (Auto) 0.0 0.0-0.1 10^3/uL Sodium Level 138 135-145 MMOL/L Potassium Level 3.8 3.6-5.0 MMOL/L Chloride Level 103 98-107 MMOL/L Carbon Dioxide Level 21 21-32 MMOL/L Anion Gap 14 5-14 MMOL/L Blood Urea Nitrogen 5 L 7-18 MG/DL Creatinine 0.74 0.60-1.30 MG/DL Estimat Glomerular Filtration Rate > 60 BUN/Creatinine Ratio 7 Glucose Level 116 H 70-105 MG/DL Calcium Level 9.0 8.5-10.1 MG/DL Corrected Calcium 9.1 8.5-10.1 MG/DL Total Bilirubin 0.6 0.1-1.0 MG/DL Aspartate Amino Transf (AST/SGOT) 24 5-34 U/L Alanine Aminotransferase (ALT/SGPT) 24 0-55 U/L Alkaline Phosphatase 56 40-136 U/L C-Reactive Protein High Sensitivity 8.57 H 0.00-0.50 MG/DL Total Protein 7.2 6.4-8.2 GM/DL Albumin 3.9 3.2-4.5 GM/DL Lipase 27 8-78 U/L Urine Color YELLOW Urine Clarity SL CLOUDY Urine pH 8.0 5-9 Urine Specific [place] 1.015 L 1.016-1.022 Urine Protein NEGATIVE NEGATIVE Urine Glucose (UA) NEGATIVE NEGATIVE Urine Ketones NEGATIVE NEGATIVE Urine Nitrite NEGATIVE NEGATIVE Urine Bilirubin NEGATIVE NEGATIVE Urine Urobilinogen 0.2 < = 1.0 MG/DL Urine Leukocyte Esterase NEGATIVE NEGATIVE Urine RBC (Auto) NEGATIVE NEGATIVE Urine RBC RARE /HPF Urine WBC NONE /HPF Urine Crystals NONE /LPF Urine Bacteria TRACE /HPF Urine Casts NONE /LPF Urine Mucus NEGATIVE /LPF Urine Culture Indicated NO Urine Opiates Screen NEGATIVE NEGATIVE Urine Oxycodone Screen NEGATIVE NEGATIVE Urine Methadone Screen NEGATIVE NEGATIVE Urine Propoxyphene Screen NEGATIVE NEGATIVE Urine Barbiturates Screen NEGATIVE NEGATIVE Ur Tricyclic Antidepressants Screen NEGATIVE NEGATIVE Urine Phencyclidine Screen NEGATIVE NEGATIVE Urine Amphetamines Screen NEGATIVE NEGATIVE Urine Methamphetamines Screen NEGATIVE NEGATIVE Urine Benzodiazepines Screen POSITIVE H NEGATIVE Urine Cocaine Screen NEGATIVE NEGATIVE Urine Cannabinoids Screen NEGATIVE NEGATIVE My Orders Orders - DELTADANE ALVARADO Ua Culture If Indicated (04/12/20 08:54) Pantoprazole Injection (Protonix Injecti (04/12/20 09:15) Cbc With Automated Diff (04/12/20 09:02) Comprehensive Metabolic Panel (04/12/20 09:02) Hs C Reactive Protein (04/12/20 09:02) Lipase (04/12/20 09:02) Drug Screen Stat (Urine) (04/12/20 09:02) Ed Iv/Invasive Line Start (04/12/20 09:02) Lactated Ringers (Lr 1000 Ml Iv Solution (04/12/20 09:02) Medications Given in ED Current Medications Medications Dose Ordered Sig/Jose Route Start Time Stop Time Status Last Admin Dose Admin Lactated Ringer's 1,000 ml @ 0 mls/hr Q0M ONCE IV 04/12/20 09:02 04/12/20 09:04 DC 04/12/20 09:17 1,000 MLS/HR Pantoprazole 40 mg ONCE ONCE IV 04/12/20 09:15 04/12/20 09:16 DC 04/12/20 09:16 40 MG Vital Signs/I&O 04/12/20 08:55 Temp 37.2 Pulse 98 B/P (MAP) 123/82 (96) Progress Progress Note #1: Time: 09:12 Progress Note Obstipation/constipation versus colitis versus antibiotic reaction versus much less likely appendicitis. UA, labs. He declined anything for pain this time. Pantoprazole and fluids. Progress Note #2: Time: 11:03 Progress Note The patient is resting comfortable in his bed without acute discomfort. He has had no material deterioration during his ER stay. We did discuss doing a trial of MiraLAX and outpatient monitoring his symptoms versus obtaining CT evidence of his abdomen and pelvis. The patient would prefer the more conservative route and we agree with this. We'll put him on some MiraLAX. His labs are nonspecific he has no left shift and has recently been detoxing which may explain his modest elevation of CRP. Departure Impression Primary Impression: Abdominal pain Qualified Codes: R10.32 - Left lower quadrant pain Disposition: 01 HOME, SELF-CARE Condition: Stable Departure-Patient Inst. Decision time for Depature: 10:58 Referrals: LI GREGORIO DO (PCP/Family) Primary Care Physician Patient Instructions: Constipation, Adult (DC) Add. Discharge Instructions: Drink plenty of fluids. Eat foods high in fiber. Mix 1 capful of MiraLAX in 6-8 ounces of fluid of your choice 2-3 times a day over the next 3 days. Do this until you have your bowels cleaned out. Tylenol 1000 mg every 8 hours as necessary for pain. Ibuprofen 800 mg every 8 hours as necessary for pain. Return to the ER should you have intractable pain, vomiting, fever or other worrisome symptoms. Scripts Polyethylene Glycol 3350 (Miralax) 119 Gm Powder 17 GM PO TID for 3 Days, #1 EA 0 Refills Prov: DANE SORENSON 04/12/20 Work/School Note: Work Release Form Date Seen in the Emergency Department: Apr 12, 2020 Return to Work: Apr 14, 2020 Restrictions: No Restrictions DANE SORENSON Apr 12, 2020 09:09
[2020-04-12 09:13] LABS: BASOPHILS % (AUTO) 0 % (0-10); EOSINOPHILS # (AUTO) 0.1 10^3/uL (0.0-0.3); EOSINOPHILS % (AUTO) 1 % (0-10); HEMATOCRIT 43 % (40-54); HEMOGLOBIN 15.1 G/DL (13.3-17.7); LYMPHOCYTES # (AUTO) 2.8 X 10^3 (1.0-4.0); LYMPHOCYTES % (AUTO) 23 % (12-44); MEAN CORPUSCULAR HEMOGLOBIN 36 PG (25-34); MEAN CORPUSCULAR HGB CONC 35 G/DL (32-36); MEAN CORPUSCULAR VOLUME 102 FL (80-99); MEAN PLATELET VOLUME 10.5 FL (7.4-10.4); MONOCYTES # (AUTO) 1.5 X 10^3 (0.0-1.0); MONOCYTES % (AUTO) 12 % (0-12); NEUTROPHILS # (AUTO) 7.8 X 10^3 (1.8-7.8); NEUTROPHILS % (AUTO) 64 % (42-75); PLATELET COUNT 188 10^3/uL (130-400); WHITE BLOOD COUNT 12.1 10^3/uL (4.3-11.0)
[2020-04-12] MEDS ORDERED: PANTOPRAZOLE 40 MG (PROTONIX) VIAL IV ONE (09:15)
[2020-04-12 09:26] LABS: ALBUMIN 3.9 GM/DL (3.2-4.5)
[2020-04-12 09:27] LABS: CHLORIDE 103 MMOL/L (98-107); POTASSIUM 3.8 MMOL/L (3.6-5.0); SODIUM 138 MMOL/L (135-145)
[2020-04-12 09:29] LABS: GLUCOSE 116 MG/DL (70-105); TOTAL PROTEIN 7.2 GM/DL (6.4-8.2)
[2020-04-12 09:30] LABS: CARBON DIOXIDE 21 MMOL/L (21-32)
[2020-04-12 09:31] LABS: BILIRUBIN,TOTAL 0.6 MG/DL (0.1-1.0)
[2020-04-12 09:32] LABS: ALKALINE PHOSPHATASE 56 U/L (40-136)
[2020-04-12 09:33] LABS: CREATININE SERUM 0.74 MG/DL (0.60-1.30); GFR ESTIMATED > 60
[2020-04-12 09:34] LABS: BUN/CREATININE RATIO 7
[2020-04-12 09:36] LABS: ALANINE AMINOTRANSFERASE 24 U/L (0-55); LIPASE 27 U/L (8-78)
[2020-04-12 10:11] LABS: BILIRUBIN,URINE NEGATIVE (NEGATIVE); CLARITY,URINE SL CLOUDY; COLOR,URINE YELLOW; GLUCOSE, URINE (UA) NEGATIVE (NEGATIVE); KETONES,URINE NEGATIVE (NEGATIVE); LEUKOCYTE ESTERASE ,URINE NEGATIVE (NEGATIVE); NITRITE,URINE NEGATIVE (NEGATIVE); PROTEIN,URINE NEGATIVE (NEGATIVE)
[2020-04-12 10:18] LABS: BACTERIA,URINE TRACE /HPF; RBC,URINE RARE /HPF
[2020-04-12 10:28] LABS: AMPHETAMINE SCREEN, URINE NEGATIVE (NEGATIVE); BARBITURATE SCREEN URINE NEGATIVE (NEGATIVE); BENZODIAZEPINES SCREEN URINE POSITIVE (NEGATIVE); CANNABINOID SCREEN, URINE NEGATIVE (NEGATIVE); COCAINE SCREEN URINE NEGATIVE (NEGATIVE); METHADONE STAT NEGATIVE (NEGATIVE); METHAMPHETAMINE SCREEN URINE S NEGATIVE (NEGATIVE); OPIATE SCREEN URINE NEGATIVE (NEGATIVE); OXYCODONE STAT NEGATIVE (NEGATIVE); PROPOXYPHENE STAT NEGATIVE (NEGATIVE); TRICYCLIC ANTIDEPRESSANTS SCRE NEGATIVE (NEGATIVE)
[2020-04-12] MEDS ORDERED: POLY119P5 PO (11:07)
[2020-04-12 11:09] VITALS: BP 117/71
== END 2020-04-12 11:15 | disposition home or self-care (01) ==
LOC: EDUNIT# 08:52 → ER 08:53
DX: R10.32 Left lower quadrant pain (principal); F17.210 Nicotine dependence, cigarettes, uncomplicated
CPT/HCPCS: 36415; 80053; 80306; 81000; 83690; 85025; 86141

== ENCOUNTER 2020-07-21 17:28 | Emergency (ER) | payer BC ==
[~2020-07-21] VITALS: Ht 155 cm; Wt 74.0 kg
[~2020-07-21 17:28] MED LIST changes: +POLY119P5 PO
--- NOTE | 2020-07-21 17:50 | ED General ---
General Stated Complaint: CONFUSION/R SIDE NUMBNESS Source of Information: Patient Exam Limitations: No Limitations History of Present Illness Date Seen by Provider: Jul 21, 2020 Time Seen by Provider: 17:48 Initial Comments To ER per EMS with reports of neck pain and at the right side of the base of the neck that radiates down the arm causing right arm pain. No fevers or chills. He has some confusion. He had a relapse in his alcoholism and drinks about 1/2 pint to 1 pint of [employer] whiskey every 2 or 3 days. His last drink was 3 to 4 hours ago. Timing/Duration: 1-2 Days Severity: Moderate Associated Systoms: Weakness Allergies and Home Medications Allergies Coded Allergies: No Known Drug Allergies (Unverified , 10/06/17) Home Medications Levetiracetam 1,000 Mg Tablet, 1,000 MG PO BID Prescribed by: MARTINA MIJARES on 02/29/20 1038 Polyethylene Glycol 3350 119 Gm Powder, 17 GM PO TID Prescribed by: DANE SORENSON on 04/12/20 1107 Patient Home Medication List Home Medication List Reviewed: Yes Review of Systems Review of Systems Constitutional: see HPI EENTM: see HPI Respiratory: no symptoms reported Cardiovascular: no symptoms reported Genitourinary: no symptoms reported Musculoskeletal: no symptoms reported Skin: no symptoms reported Psychiatric/Neurological: No Symptoms Reported Hematologic/Lymphatic: No Symptoms Reported Immunological/Allergic: no symptoms reported Past Rizovbj-Raqesv-Lsinqh Hx Patient Social History Alcohol Beverage of Choice: Whiskey Type Used: Cigarettes 2nd Hand Smoke Exposure: Yes Recent Hopitalizations: Yes (02/2020 seizure activity) Seasonal Allergies Seasonal Allergies: Yes Past Medical History Surgeries: Yes (inguinal HERNIA repair) Abdominal Respiratory: Yes (mycoplasma pneumonia at 12 yrs old) Pneumonia Cardiac: No Neurological: No Genitourinary: No Gastrointestinal: No Musculoskeletal: No Endocrine: No HEENT: No Tinnitis Cancer: No Did You Recieve Any Treatments: No Psychosocial: No Integumentary: No Blood Disorders: No Family Medical History Patient reports no known family medical history. No Pertinent Family Hx Physical Exam Vital Signs Capillary Refill : Height, Weight, BMI Height: 6'0" Weight: 200lbs. 0.0oz. 90.581602yg; 25.00 BMI Method:Stated General Appearance: No Apparent Distress, WD/WN Eyes: Bilateral Eye Normal Inspection, Bilateral Eye PERRL, Bilateral Eye EOMI Neck: Full Range of Motion, Normal Inspection Respiratory: Lungs Clear, Normal Breath Sounds, No Accessory Muscle Use, No Respiratory Distress Cardiovascular: Regular Rate, Rhythm, Normal Peripheral Pulses Gastrointestinal: Normal Bowel Sounds, Non Tender, Soft Extremity: Normal Capillary Refill, Normal Inspection Neurologic/Psychiatric: Alert, Oriented x3 Skin: Normal Color, Warm/Dry Progress/Results/Core Measures Suspected Sepsis SIRS Temperature: Pulse: Respiratory Rate: Laboratory Tests 07/21/20 18:00: White Blood Count 5.4 Blood Pressure / Mean: Laboratory Tests 07/21/20 18:00: Creatinine 0.75, INR Comment 1.1, Platelet Count 80L, Total Bilirubin 0.7 Results/Orders Lab Results Laboratory Tests Test 07/21/20 18:00 Range/Units White Blood Count 5.4 4.3-11.0 10^3/uL Red Blood Count 4.42 4.30-5.52 10^6/uL Hemoglobin 15.9 13.3-17.7 g/dL Hematocrit 45 40-54 % Mean Corpuscular Volume 103 H 80-99 fL Mean Corpuscular Hemoglobin 36 H 25-34 pg Mean Corpuscular Hemoglobin Concent 35 32-36 g/dL Red Cell Distribution Width 12.4 10.0-14.5 % Platelet Count 80 L 130-400 10^3/uL Mean Platelet Volume 10.3 9.0-12.2 fL Immature Granulocyte % (Auto) 0 % Neutrophils (%) (Auto) 27 L 42-75 % Lymphocytes (%) (Auto) 61 H 12-44 % Monocytes (%) (Auto) 11 0-12 % Eosinophils (%) (Auto) 1 0-10 % Basophils (%) (Auto) 0 0-10 % Neutrophils # (Auto) 1.4 L 1.8-7.8 10^3/uL Lymphocytes # (Auto) 3.3 1.0-4.0 10^3/uL Monocytes # (Auto) 0.6 0.0-1.0 10^3/uL Eosinophils # (Auto) 0.0 0.0-0.3 10^3/uL Basophils # (Auto) 0.0 0.0-0.1 10^3/uL Immature Granulocyte # (Auto) 0.0 0.0-0.1 10^3/uL Prothrombin Time 15.0 H 12.2-14.7 SEC INR Comment 1.1 0.8-1.4 Sodium Level 143 135-145 MMOL/L Potassium Level 3.4 L 3.6-5.0 MMOL/L Chloride Level 102 98-107 MMOL/L Carbon Dioxide Level 26 21-32 MMOL/L Anion Gap 15 H 5-14 MMOL/L Blood Urea Nitrogen 5 L 7-18 MG/DL Creatinine 0.75 0.60-1.30 MG/DL Estimat Glomerular Filtration Rate > 60 BUN/Creatinine Ratio 7 Glucose Level 103 70-105 MG/DL Calcium Level 8.8 8.5-10.1 MG/DL Corrected Calcium 8.6 8.5-10.1 MG/DL Total Bilirubin 0.7 0.1-1.0 MG/DL Aspartate Amino Transf (AST/SGOT) 90 H 5-34 U/L Alanine Aminotransferase (ALT/SGPT) 49 0-55 U/L Alkaline Phosphatase 72 40-136 U/L Total Protein 7.6 6.4-8.2 GM/DL Albumin 4.2 3.2-4.5 GM/DL Serum Alcohol 356 *H <10 MG/DL My Orders Orders - MEGAN HERNANDEZ APRN Cbc With Automated Diff (07/21/20 17:47) Comprehensive Metabolic Panel (07/21/20 17:47) Protime With Inr (07/21/20 17:47) Alcohol (07/21/20 17:47) Ketorolac Injection (Toradol Injection) (07/21/20 18:00) Ns Iv 1000 Ml (Sodium Chloride 0.9%) (07/21/20 18:00) Ct Head/Cervical Spine Wo (07/21/20 18:10) Medications Given in ED Current Medications Medications Dose Ordered Sig/Jose Route Start Time Stop Time Status Last Admin Dose Admin Ketorolac Tromethamine 15 mg ONCE ONCE IVP 07/21/20 18:00 07/21/20 18:01 DC 07/21/20 18:05 15 MG Vital Signs/I&O Capillary Refill : Departure Impression Primary Impression: Alcohol use Disposition: HOME, SELF-CARE Condition: Stable Departure-Patient Inst. Decision time for Depature: 19:05 Referrals: LI GREGORIO DO (PCP/Family) Primary Care Physician Patient Instructions: Alcohol Use Disorder ED MEGAN HERNANDEZ APRN Jul 21, 2020 17:49
[2020-07-21] MEDS ORDERED: NS IV 1000 ML 1,000 ML IV SCH (18:00)
[2020-07-21] MEDS ORDERED: KETOROLAC 30 MG/ML VIAL IVP ONE (18:00)
[2020-07-21 18:22] LABS: BASOPHILS % (AUTO) 0 % (0-10); MEAN CORPUSCULAR HEMOGLOBIN 36 pg (25-34); MEAN CORPUSCULAR HGB CONC 35 g/dL (32-36); MEAN CORPUSCULAR VOLUME 103 fL (80-99); PLATELET COUNT 80 10^3/uL (130-400)
[2020-07-21 18:24] LABS: EOSINOPHILS % (AUTO) 1 % (0-10); HEMATOCRIT 45 % (40-54); HEMOGLOBIN 15.9 g/dL (13.3-17.7); LYMPHOCYTES # (AUTO) 3.3 10^3/uL (1.0-4.0); LYMPHOCYTES % (AUTO) 61 % (12-44); MEAN PLATELET VOLUME 10.3 fL (9.0-12.2); MONOCYTES # (AUTO) 0.6 10^3/uL (0.0-1.0); MONOCYTES % (AUTO) 11 % (0-12); NEUTROPHILS # (AUTO) 1.4 10^3/uL (1.8-7.8); NEUTROPHILS % (AUTO) 27 % (42-75); WHITE BLOOD COUNT 5.4 10^3/uL (4.3-11.0)
[2020-07-21 18:41] LABS: INR 1.1 (0.8-1.4)
--- NOTE | 2020-07-21 18:45 | Diagnostic Imaging Report ---
PROCEDURE: CT head and CT cervical spine without contrast. TECHNIQUE: Multiple contiguous axial images were obtained through the brain and cervical spine without the use of intravenous contrast. Sagittal and coronal reformations through the cervical spine were then performed. Auto Exposure Controls were utilized during the CT exam to meet ALARA standards for radiation dose reduction. INDICATION: Fall. Right-sided neck pain. Numbness of the fingers. COMPARISON: 02/28/2020 FINDINGS: CT head: Ventricles and cortical sulci are normal in size and contour. There is no midline shift or mass-effect. No acute intra-axial hemorrhage is seen. There are no abnormal areas of increased or decreased density to suggest acute hemorrhage or edema. No extra-axial masses or collections are present. The bony calvarium is intact. The visualized paranasal sinuses show complete opacification of the left maxillary sinus and scattered mucosal thickening of the ethmoid air cells on the left. The mastoid air cells are clear. CT cervical spine: Evaluation of the static alignment shows reversal of normal lordotic curvature of the cervical spine. This may be related to patient positioning, as well as spasm. There is no significant anteroretrolisthesis. There is no evidence of jumped facets. Vertebral body heights are maintained. There is no acute fracture. No bony fragments are seen within the spinal canal. There are mild multilevel degenerative changes consisting of intervertebral disc height loss with anterior and posterior disc osteophyte complex formations. These changes appear greatest at the C5-C6 level. Pre and paravertebral soft tissue structures are unremarkable. Included portions of the lung apices are clear. IMPRESSION: 1. No acute intracranial abnormality. No CT evidence of mass, acute infarct or intracranial hemorrhage. 2. No acute fracture or dislocation of the cervical spine. Dictated by: Dictated on workstation # [id number]
[2020-07-21 18:47] LABS: ALBUMIN 4.2 GM/DL (3.2-4.5); CHLORIDE 102 MMOL/L (98-107); POTASSIUM 3.4 MMOL/L (3.6-5.0); SODIUM 143 MMOL/L (135-145)
[2020-07-21 18:48] LABS: CALCIUM 8.8 MG/DL (8.5-10.1)
[2020-07-21 18:50] LABS: GLUCOSE 103 MG/DL (70-105); TOTAL PROTEIN 7.6 GM/DL (6.4-8.2)
[2020-07-21 18:51] LABS: BILIRUBIN,TOTAL 0.7 MG/DL (0.1-1.0); CARBON DIOXIDE 26 MMOL/L (21-32)
[2020-07-21 18:53] LABS: ALKALINE PHOSPHATASE 72 U/L (40-136); CREATININE SERUM 0.75 MG/DL (0.60-1.30); GFR ESTIMATED > 60
[2020-07-21 18:54] LABS: BUN/CREATININE RATIO 7
[2020-07-21 18:56] LABS: ALANINE AMINOTRANSFERASE 49 U/L (0-55)
[2020-07-21 19:18] VITALS: BP 115/78
== END 2020-07-21 19:19 | disposition home or self-care (01) ==
LOC: EDUNIT# 17:28 → ER 17:30
DX: Z72.89 Other problems related to lifestyle (principal); Z77.22 Contact with and (suspected) exposure to environmental tobacco smoke (acute) (chronic)
CPT/HCPCS: 70450; 72125; 80053; 85025; 85610; 99284; G0480; 36415; 80320

== ENCOUNTER 2020-08-10 10:15 | Emergency (ER) | payer BC ==
[~2020-08-10] VITALS: Ht 180.3 cm; Wt 83.9 kg
[2020-08-10 10:15] VITALS: BP 124/81
[2020-08-10 11:01] LABS: BASOPHILS % (AUTO) 0 % (0-10); EOSINOPHILS % (AUTO) 0 % (0-10); HEMATOCRIT 43 % (40-54); LYMPHOCYTES # (AUTO) 2.2 10^3/uL (1.0-4.0); LYMPHOCYTES % (AUTO) 25 % (12-44); MEAN CORPUSCULAR HEMOGLOBIN 36 pg (25-34); MEAN CORPUSCULAR HGB CONC 35 g/dL (32-36); MEAN CORPUSCULAR VOLUME 104 fL (80-99); MEAN PLATELET VOLUME 10.7 fL (9.0-12.2); MONOCYTES # (AUTO) 0.7 10^3/uL (0.0-1.0); MONOCYTES % (AUTO) 8 % (0-12); NEUTROPHILS # (AUTO) 5.9 10^3/uL (1.8-7.8); NEUTROPHILS % (AUTO) 66 % (42-75); PLATELET COUNT 107 10^3/uL (130-400); WHITE BLOOD COUNT 8.8 10^3/uL (4.3-11.0)
[2020-08-10 11:07] LABS: ALBUMIN 4.1 GM/DL (3.2-4.5); CHLORIDE 99 MMOL/L (98-107); POTASSIUM 3.7 MMOL/L (3.6-5.0); SODIUM 132 MMOL/L (135-145)
[2020-08-10 11:09] LABS: GLUCOSE 169 MG/DL (70-105); TOTAL PROTEIN 7.3 GM/DL (6.4-8.2)
[2020-08-10 11:10] LABS: CARBON DIOXIDE 18 MMOL/L (21-32)
[2020-08-10 11:11] LABS: BILIRUBIN,TOTAL 1.6 MG/DL (0.1-1.0)
[2020-08-10 11:13] LABS: ALKALINE PHOSPHATASE 75 U/L (40-136); GFR ESTIMATED > 60
[2020-08-10 11:14] LABS: BUN/CREATININE RATIO 10
[2020-08-10 11:16] LABS: ALANINE AMINOTRANSFERASE 71 U/L (0-55); MAGNESIUM 1.6 MG/DL (1.6-2.4)
--- NOTE | 2020-08-10 11:28 | ED General ---
General Chief Complaint: Neurological Problems Stated Complaint: SEIZURE Nursing Triage Note: PT BROUGHT IN BY [facility] FROM HOME WITH COMPLAINT OF SEIZURE. PT HAD HX OF SEIZURE AFTER ALCOHOL WITHDRAWAL. STATES HE QUIT TAKING KEPPRA IN MAY. PT HIT TABLE DURING SEIZUE. PLACED IN CCOLLAR BY EMS. PT IS ALERT AND ORIENTED ON ARRIVAL. Nursing Sepsis Screen: No Definite Risk (SOCO HO MED STUDENT) History of Present Illness Date Seen by Provider: Aug 10, 2020 Time Seen by Provider: 10:15 Initial Comments Pt states he had seizure out of the blue today. Pt has clear memory of this morning. Pt had hx of 3 seizures in February d/t alcohol withdrawl. Pt states last drink was in May. Feels numbness in R fingers that radiates up shoulder to back of neck on R. Pt can't feel sensation in R UE since mid July. Pt quit Keppra. Pt placed in c-collar but removed it b/c it was uncomfortable. Pt had slight trembling throughout body that he states is normal for him. (SOCO HO MED STUDENT) Allergies and Home Medications Allergies Coded Allergies: No Known Drug Allergies (Unverified , 10/06/17) Home Medications Levetiracetam 1,000 Mg Tablet, 1,000 MG PO BID Prescribed by: MARTINA MIJARES on 02/29/20 1038 Polyethylene Glycol 3350 119 Gm Powder, 17 GM PO TID Prescribed by: DANE SORENSON on 04/12/20 1107 Patient Home Medication List Home Medication List Reviewed: Yes (SANTI ALCARAZ MD) Review of Systems Review of Systems Constitutional: no symptoms reported EENTM: no symptoms reported Respiratory: no symptoms reported Cardiovascular: no symptoms reported Gastrointestinal: no symptoms reported Genitourinary: no symptoms reported Musculoskeletal: no symptoms reported Skin: no symptoms reported Psychiatric/Neurological: No Symptoms Reported Hematologic/Lymphatic: No Symptoms Reported (SANTI ALCARAZ MD) Past Pyfmxhp-Inlqfo-Byxtrw Hx Past Med/Social Hx: Reviewed Nursing Past Med/Soc Hx (SANTI ALCARAZ MD) Patient Social History Alcohol Use: Past History Number of Drinks Today: GG Alcohol Beverage of Choice: Whiskey Recreational Drug Use: No Smoking Status: Current Everyday Smoker Type Used: Cigarettes 2nd Hand Smoke Exposure: Yes Recent Foreign Travel: No Contact w/Someone Who Travel: No Recent Infectious Disease Expo: No Recent Hopitalizations: Yes (02/2020 seizure activity) (SOCO HO) Immunizations Up To Date Tetanus Booster (TDap): Unknown (SOCO HO) Seasonal Allergies Seasonal Allergies: Yes (SOCO HO) Past Medical History Surgeries: Yes (inguinal HERNIA repair) Abdominal Respiratory: Yes (mycoplasma pneumonia at 12 yrs old) Pneumonia Cardiac: No Neurological: No Genitourinary: No Gastrointestinal: No Musculoskeletal: No Endocrine: No HEENT: No Tinnitis Cancer: No Did You Recieve Any Treatments: No Psychosocial: No Integumentary: No Blood Disorders: No (SOCO HO) Neurological: Yes Seizure Disorder (Withdrawal seizures) (SANTI ALCARAZ MD) Family Medical History Patient reports no known family medical history. No Pertinent Family Hx (SOCO HO) Physical Exam Vital Signs Vital Signs - First Documented 08/10/20 10:15 Pulse 94 Resp 20 B/P (MAP) 124/81 (95) Pulse Ox 95 O2 Delivery Room Air (SANTI ALCARAZ MD) Vital Signs Capillary Refill : Less Than 3 Seconds (SOCO HO) Height, Weight, BMI Height: 6'0" Weight: 200lbs. 0.0oz. [id number]; 25.00 BMI Method:Stated General Appearance: No Apparent Distress, WD/WN Eyes: Bilateral Eye Normal Inspection, Bilateral Eye PERRL, Bilateral Eye EOMI HEENT: PERRL/EOMI Extremity: Normal Range of Motion Neurologic/Psychiatric: Alert, No Motor/Sensory Deficits, Normal Mood/Affect, table games floor supervisor II-XII Norm as Tested, Other (minor tremors throughout body) Skin: Normal Color (SOCO HO) HEENT: PERRL/EOMI, Normal ENT Inspection Neck: Normal Inspection, Tender Midline (Right side of cervical spine) Cardiovascular: Regular Rate, Rhythm, No Edema, No Murmur, Normal Peripheral Pulses Gastrointestinal: Normal Bowel Sounds, Non Tender, Soft Extremity: Normal Inspection, No Pedal Edema Skin: Warm/Dry (SANTI ALCARAZ MD) Progress/Results/Core Measures Suspected Sepsis Recent Fever Within 48 Hours: No Infection Criteria Present: None New/Unexplained Altered Menta: No Sepsis Screen: No Definite Risk SIRS Temperature: Pulse: 94 Respiratory Rate: 20 Laboratory Tests 08/10/20 10:20: White Blood Count 8.8 Blood Pressure 124 /81 Mean: 95 Laboratory Tests 08/10/20 10:20: Creatinine 0.80, Platelet Count 107L, Total Bilirubin 1.6H (SOCO HO MED STUDENT) Results/Orders Lab Results Laboratory Tests Test 08/10/20 10:20 08/10/20 11:43 Range/Units White Blood Count 8.8 4.3-11.0 10^3/uL Red Blood Count 4.17 L 4.30-5.52 10^6/uL Hemoglobin 15.0 13.3-17.7 g/dL Hematocrit 43 40-54 % Mean Corpuscular Volume 104 H 80-99 fL Mean Corpuscular Hemoglobin 36 H 25-34 pg Mean Corpuscular Hemoglobin Concent 35 32-36 g/dL Red Cell Distribution Width 12.2 10.0-14.5 % Platelet Count 107 L 130-400 10^3/uL Mean Platelet Volume 10.7 9.0-12.2 fL Immature Granulocyte % (Auto) 0 % Neutrophils (%) (Auto) 66 42-75 % Lymphocytes (%) (Auto) 25 12-44 % Monocytes (%) (Auto) 8 0-12 % Eosinophils (%) (Auto) 0 0-10 % Basophils (%) (Auto) 0 0-10 % Neutrophils # (Auto) 5.9 1.8-7.8 10^3/uL Lymphocytes # (Auto) 2.2 1.0-4.0 10^3/uL Monocytes # (Auto) 0.7 0.0-1.0 10^3/uL Eosinophils # (Auto) 0.0 0.0-0.3 10^3/uL Basophils # (Auto) 0.0 0.0-0.1 10^3/uL Immature Granulocyte # (Auto) 0.0 0.0-0.1 10^3/uL Sodium Level 132 L 135-145 MMOL/L Potassium Level 3.7 3.6-5.0 MMOL/L Chloride Level 99 98-107 MMOL/L Carbon Dioxide Level 18 L 21-32 MMOL/L Anion Gap 15 H 5-14 MMOL/L Blood Urea Nitrogen 8 7-18 MG/DL Creatinine 0.80 0.60-1.30 MG/DL Estimat Glomerular Filtration Rate > 60 BUN/Creatinine Ratio 10 Glucose Level 169 H 70-105 MG/DL Calcium Level 9.0 8.5-10.1 MG/DL Corrected Calcium 8.9 8.5-10.1 MG/DL Magnesium Level 1.6 1.6-2.4 MG/DL Total Bilirubin 1.6 H 0.1-1.0 MG/DL Aspartate Amino Transf (AST/SGOT) 83 H 5-34 U/L Alanine Aminotransferase (ALT/SGPT) 71 H 0-55 U/L Alkaline Phosphatase 75 40-136 U/L Total Protein 7.3 6.4-8.2 GM/DL Albumin 4.1 3.2-4.5 GM/DL Serum Alcohol < 10 <10 MG/DL Urine Color ORANGE Urine Clarity CLEAR Urine pH 6.0 5-9 Urine Specific Foley >=1.030 1.016-1.022 Urine Protein 2+ H NEGATIVE Urine Glucose (UA) NEGATIVE NEGATIVE Urine Ketones 2+ H NEGATIVE Urine Nitrite NEGATIVE NEGATIVE Urine Bilirubin NEGATIVE NEGATIVE Urine Urobilinogen 0.2 < = 1.0 MG/DL Urine Leukocyte Esterase NEGATIVE NEGATIVE Urine RBC (Auto) 2+ H NEGATIVE Urine RBC 5-10 H /HPF Urine WBC NONE /HPF Urine Squamous Epithelial Cells 0-2 /HPF Urine Crystals PRESENT H /LPF Urine Amorphous Sediment MOD NEIL URATES H /LPF Urine Bacteria NEGATIVE /HPF Urine Casts NONE /LPF Urine Mucus NEGATIVE /LPF Urine Culture Indicated NO Urine Opiates Screen NEGATIVE NEGATIVE Urine Oxycodone Screen NEGATIVE NEGATIVE Urine Methadone Screen NEGATIVE NEGATIVE Urine Propoxyphene Screen NEGATIVE NEGATIVE Urine Barbiturates Screen NEGATIVE NEGATIVE Ur Tricyclic Antidepressants Screen NEGATIVE NEGATIVE Urine Phencyclidine Screen NEGATIVE NEGATIVE Urine Amphetamines Screen NEGATIVE NEGATIVE Urine Methamphetamines Screen NEGATIVE NEGATIVE Urine Benzodiazepines Screen NEGATIVE NEGATIVE Urine Cocaine Screen NEGATIVE NEGATIVE Urine Cannabinoids Screen POSITIVE H NEGATIVE (SANTI ALCARAZ MD) My Orders Orders - SANTI ALCARAZ MD Ct Head/Cervical Spine Wo (08/10/20 10:55) Alcohol (08/10/20 10:55) Cbc With Automated Diff (08/10/20 10:55) Comprehensive Metabolic Panel (08/10/20 10:55) Drug Screen Stat (Urine) (08/10/20 10:55) Magnesium (08/10/20 10:55) Ua Culture If Indicated (08/10/20 10:55) Ed Iv/Invasive Line Start (08/10/20 10:55) (SANTI ALCARAZ MD) Vital Signs/I&O 08/10/20 10:15 Pulse 94 Resp 20 B/P (MAP) 124/81 (95) Pulse Ox 95 O2 Delivery Room Air (SANTI ALCARAZ MD) Vital Signs/I&O Capillary Refill : Less Than 3 Seconds (SOCO HO MED STUDENT) Blood Pressure Mean: 95 Progress Note : Time: 11:15 Progress Note seizure - cranial nerves intact. sensation intact except R UE. Motor intact in LE. CT head ordered. (SOCO HO STUDENT) Progress Note : Time: 19:37 Progress Note Despite patient's assertion that he has not had any alcohol whatsoever since May, review of chart notes that he had a blood alcohol level greater than 350 about 3 weeks ago during an ER visit at that time. When confronted about this, patient states "I forgot about that". Work-up here was relatively unremarkable except for positive marijuana screen. CT of the head and C-spine was obtained due to his pain in the neck. I discussed the situation with the patient and recommended that he restart Keppra since he adamantly denies that his seizure today was related to withdraw. As I was preparing his discharge papers, he walked out of the emergency room leaving AGAINST MEDICAL ADVICE without discussion of his discharge instructions. (SANTI ALCARAZ MD) Diagnostic Imaging Diagonstic Imaging: CT Plain Films/CT/US/NM/MRI: c-spine, head Comments NAME: ISAMAR CONWAY MED REC#: [id number] PT STATUS: DEP ER : 1985 PHYSICIAN: SANTI ALCARAZ MD ADMIT DATE: 08/10/20/ER Signed Date of Exam:08/10/20 CT HEAD/CERVICAL SPINE WO PROCEDURE: CT head and CT cervical spine without contrast. TECHNIQUE: Multiple contiguous axial images were obtained through the brain and cervical spine without the use of intravenous contrast. Sagittal and coronal reformations through the cervical spine were then performed. Auto Exposure Controls were utilized during the CT exam to meet ALARA standards for radiation dose reduction. INDICATION: Trauma. COMPARISON: 07/21/2020 FINDINGS: CT HEAD: Ventricles and cortical sulci are normal in size and contour. There is no midline shift or mass-effect. No acute intra-axial hemorrhage is seen. There are no abnormal areas of increased or decreased density to suggest acute hemorrhage or edema. No extra-axial masses or collections are present. The bony calvarium is intact. The visualized paranasal sinuses show opacification of the left maxillary sinus. The mastoid air cells are clear. CT CERVICAL SPINE: Static alignment of the cervical spine is maintained. There is no significant so or retrolisthesis. There is no evidence of jumped facets. Vertebral body heights are preserved. There is no acute fracture. No bony fragments are seen within the spinal canal. Early degenerative changes are noted. Pre and paravertebral soft tissue structures are unremarkable. Note is made of advanced dental caries involving the far posterior right mandibular molar. Included portions of the lung apices are clear. IMPRESSION: 1. No acute intracranial abnormality. No CT evidence of mass, acute infarct or intracranial hemorrhage. 2. No acute fracture or dislocation of the cervical spine. 3. Advanced dental caries regarding far posterior right mandibular molar. Dictated by: Dictated on workstation # [id number] Dict: 08/10/20 1336 Trans: 08/10/20 1657 [facility] [id number] Interpreted by: CRISTHIAN MORRISON MD Electronically signed by: CRISTHIAN MORRISON MD 08/10/20 1657 Reviewed: Reviewed by Me (SANTI ALCARAZ MD) Departure Impression Primary Impression: Seizure Additional Impressions: Neck pain Paresthesia of right arm Dental caries Disposition: AGAINST MEDICAL ADVICE Condition: Against Medical Advice Departure-Patient Inst. Decision time for Depature: 14:16 (SANTI ALCARAZ MD) Referrals: LI GREGORIO DO (PCP/Family) Primary Care Physician Patient Instructions: Seizures Medical student attestation This patient was interviewed and examined by me personally along with Soco Ho, [place] 3. I reviewed her documentation and agree with her history, physical, and assessments except where otherwise noted. This patient presented to the emergency room with complaint of seizure. He arrived via EMS. He has had seizures in the past related to alcohol withdrawal. He states he has not had any alcohol to drink fluids May. However, serum alcohol during an ER visit in July was greater than 350. Patient reports being off of Keppra since the summer. He states he has not needed it since he is not drinking and therefore not withdrawing. He does have a fine tremor today which he states is chronic and not related to withdrawal. He also reports a paresthesia in his right hand that radiates all the way up to the right shoulder and is sometimes painful. Sometimes this radiates into the neck as well. This has been present for several weeks. Exam: General: Alert, oriented, no acute distress HEENT: Normocephalic and atraumatic, mucous membranes moist Neck: Tender to palpation on the right posterior aspect Heart: Regular rate and rhythm without murmur Lungs: Clear to auscultation bilaterally Abdomen: Soft, nontender, nondistended Neuro psych: Alert, oriented, no focal deficits Skin: Warm and dry without rashes See progress note above. (SANTI ALCARAZ MD) SOCO HO MED STUDENT Aug 10, 2020 11:28 SANTI ALCARAZ MD Aug 10, 2020 14:17
[2020-08-10 11:50] LABS: BILIRUBIN,URINE NEGATIVE (NEGATIVE); CLARITY,URINE CLEAR; COLOR,URINE ORANGE; GLUCOSE, URINE (UA) NEGATIVE (NEGATIVE); KETONES,URINE 2+ (NEGATIVE); LEUKOCYTE ESTERASE ,URINE NEGATIVE (NEGATIVE); NITRITE,URINE NEGATIVE (NEGATIVE); PROTEIN,URINE 2+ (NEGATIVE)
[2020-08-10 12:01] LABS: AMORPHOUS SEDIMENT,UR MOD AMOR URATES /LPF; BACTERIA,URINE NEGATIVE /HPF; SQUAMOUS EPITHELIAL CELL,UR 0-2 /HPF
[2020-08-10 12:04] LABS: AMPHETAMINE SCREEN, URINE NEGATIVE (NEGATIVE); BARBITURATE SCREEN URINE NEGATIVE (NEGATIVE); BENZODIAZEPINES SCREEN URINE NEGATIVE (NEGATIVE); CANNABINOID SCREEN, URINE POSITIVE (NEGATIVE); COCAINE SCREEN URINE NEGATIVE (NEGATIVE); METHADONE STAT NEGATIVE (NEGATIVE); METHAMPHETAMINE SCREEN URINE S NEGATIVE (NEGATIVE); OPIATE SCREEN URINE NEGATIVE (NEGATIVE); OXYCODONE STAT NEGATIVE (NEGATIVE); PROPOXYPHENE STAT NEGATIVE (NEGATIVE); TRICYCLIC ANTIDEPRESSANTS SCRE NEGATIVE (NEGATIVE)
--- NOTE | 2020-08-10 13:48 | Diagnostic Imaging Report ---
PROCEDURE: CT head and CT cervical spine without contrast. TECHNIQUE: Multiple contiguous axial images were obtained through the brain and cervical spine without the use of intravenous contrast. Sagittal and coronal reformations through the cervical spine were then performed. Auto Exposure Controls were utilized during the CT exam to meet ALARA standards for radiation dose reduction. INDICATION: Trauma. COMPARISON: 07/21/2020 FINDINGS: CT HEAD: Ventricles and cortical sulci are normal in size and contour. There is no midline shift or mass-effect. No acute intra-axial hemorrhage is seen. There are no abnormal areas of increased or decreased density to suggest acute hemorrhage or edema. No extra-axial masses or collections are present. The bony calvarium is intact. The visualized paranasal sinuses show opacification of the left maxillary sinus. The mastoid air cells are clear. CT CERVICAL SPINE: Static alignment of the cervical spine is maintained. There is no significant so or retrolisthesis. There is no evidence of jumped facets. Vertebral body heights are preserved. There is no acute fracture. No bony fragments are seen within the spinal canal. Early degenerative changes are noted. Pre and paravertebral soft tissue structures are unremarkable. Note is made of advanced dental caries involving the far posterior right mandibular molar. Included portions of the lung apices are clear. IMPRESSION: 1. No acute intracranial abnormality. No CT evidence of mass, acute infarct or intracranial hemorrhage. 2. No acute fracture or dislocation of the cervical spine. 3. Advanced dental caries regarding far posterior right mandibular molar. Dictated by: Dictated on workstation # [id number]
== END 2020-08-10 14:17 | disposition left against medical advice (07) ==
LOC: EDUNIT# 10:15 → ER 10:16
DX: G40.909 Epilepsy, unspecified, not intractable, without status epilepticus (principal); M54.2 Cervicalgia; R20.2 Paresthesia of skin; K02.9 Dental caries, unspecified; F17.210 Nicotine dependence, cigarettes, uncomplicated
CPT/HCPCS: 70450; 72125; 80053; 80306; 81000; 83735; 85025; 99284; G0480; 36415; 80320